=== PATIENT | female | born 1950 | race Caucasian/White ===

== ENCOUNTER → 2016-05-19 | Outpatient (CLI) | payer BC, OTHER ==
[~2016-05-19] VITALS: Ht 139.7 cm; Wt 51.7 kg
[~2016-05-19] MED LIST: ADDERALL 20 MG20 M1 PO; ALLEGRA ALLERG180 MG PO; ANTIBIOTIC; AUGMENTIN 875875 MG PO; BACTRIM DS TAB1 EACH; BENADRYL25 MG IV; BIO IDENTICAL; CLIMARA PRO PA1 EACH TD; DIAZEPAM10 M1 PO; DOLOPHINE HCL10 MG PO; DOXYCYCLINE 10100 MG PO; ENDOCET 7.5-321 EACH PO; FLEXERIL PO; FLONASE 0.05%50 MCG NASAL; LASIX 40 MG TAB40 M1 PO; LEVOTHROID PO; LEVOTHYROXIN0.125 M1 PO; LINZESS290 MCG PO; MEDROLDOSEPACK PO; METHADONE HCL 110 M1 PO; METHADOSE10 M1 PO; METHADOSE10 MG PO; MIRALAX255 GM PO; MOBIC15 MG PO; MOBIC7.5 MG PO; MUCINEX DM ER1 EAC1 PO; NORTRIPTYLINE H50 MG PO; OXYCODON-ACETA1 EAC1 PO; PAXIL40 MG PO; PROBIOTIC1 EAC1 PO; PROMETRIUM PO; PROTONIX 20 MG20 M1 PO; SINGULAIR 10 MG10 M1 PO; STOOL SOFTENER240 MG PO; SYNTHROID100 MCG PO; WELLBUTRIN SR150 MG PO; [UNRECOGNIZED DRUG - OTHER]; [UNRECOGNIZED DRUG - OTHER] PO
--- NOTE | ~2016-05-19 | HPC ---
[facility] [place] [address] PAIN MANAGEMENT CONSULTATION Name: TASNEEM ANGUIANO Room #: REG SETH DelarosaToniKayceeToni#: [id number] Admission: 05/19/16 Attend Phys: Harleen Lucia MD Discharge: Date of : 54 Report #: [id number] THIS REPORT FOR: //name// CC: TAWANNA Lucia PRIMARY CARE PHYSICIAN: Tawanna Abdi M.D. FOLLOWUP COMPLAINT: I have had my hip surgery and I am getting around better. FOLLOWUP HISTORY: The patient is a 65-year-old female who has been seen in the pain clinic for a number of years because of chronic pain associated with degenerative joint disease of her left hip. She returns today after surgery. Things have gone reasonably well. She is walking with the use of a cane. She feels like she is healing reasonably well. She is able to perform the exercises that her physician and physical therapists recommend. She has had no falls. She rates the pain as a 6/10. She feels that the methadone medication 10 mg 1 p.o. t.i.d. have been quite helpful. She strived to decrease her opioid use in the past as she heals up. She has had no problems with the medications and would like to continue it at 10 mg methadone 3 times a day at this juncture to help with her recovery process. PHYSICAL EXAMINATION: GENERAL: The patient is walking reasonably well with the use of a crutch. VITAL SIGNS: Blood pressure 161/95, pulse 110, respiratory rate 18, room air saturations 100%. The patient has a well healing scar in the left lateral thigh. RECOMMENDATIONS: We will continue with the patient on her current medical regimen of 3 methadone tablets per day for a total of 30 mg. She will continue with her convalescence exercises. She will call us if she has any problems with her medications. We would like to thank you for letting us participate in her care. We hope she continues to improve. A script for methadone 10 mg 1 p.o. t.i.d., meloxicam 15 mg 1 p.o. every day and Flexeril 10 mg as needed, has been written. <ELECTRONICALLY SIGNED> By: Harleen Lucia MD 06/13/16 1018 [id number] Harleen Lucia MD /nt
[2016-05-19 08:18] VITALS: BP 161/95
== END ==
LOC: PAIN 07:11
DX: M16.12 Unilateral primary osteoarthritis, left hip (principal)

== ENCOUNTER → 2016-08-04 | Outpatient (CLI) | payer BC, OTHER ==
[~2016-08-04] VITALS: Ht 142.2 cm; Wt 54.7 kg
[~2016-08-04] MED LIST changes: +BACLOFEN 10MG T10 MG PO
--- NOTE | ~2016-08-04 | HPC ---
[facility] [place] [address] PAIN MANAGEMENT CONSULTATION Name: TASNEEM ANGUIANO Room #: REG SETH Sheela#: [id number] Admission: 08/04/16 Attend Phys: Harleen Lucia MD Discharge: Date of : 54 Report #: [id number] THIS REPORT FOR: //name// CC: Adarsh Lucia DATE OF SERVICE: 08/04/2016 FOLLOWUP COMPLAINT: I have had my surgery and things are getting better. I am walking a little better. FOLLOWUP HISTORY: The patient is a 66-year-old female who has been followed in the pain clinic because of chronic degenerative joint disease involving her left hip. She has had an arthroplasty. She feels that things are continuing to improve. She is about 3 months out and feels that her medications continue to be helpful enabling her to engage in activities of daily living that would be hard to endure without use of her current medical regimen. Overall, she is feeling better given her recent surgery. PHYSICAL EXAMINATION: The patient walks with an antalgic gait. She states she sometimes uses a cane or walker at home. Blood pressure 156/95, pulse 107, respiratory rate 16, room air O2 saturation is 98%. Height 4 feet 8 inches, weight 54 kilograms, BMI 27. The patient has pain and discomfort in the left area, which is consistent what one would consider given that she has had hip replacement. RECOMMENDATIONS: We will continue with her current medical regimen. IMPRESSION: 1. History of lumbar radiculopathy, history of recent left hip replacement. 2. Chronic knee pain, history of pseudogout involving her knee. A script for her medications have been written. She will call us if she has any problems with her medications. We would like to thank you for letting us participate in her care. We hope she continues to improve. By: 1604 2044 Harleen Lucia MD /nt
[2016-08-04 09:39] VITALS: BP 156/95
== END ==
LOC: PAIN 08-02 07:15
DX: M54.16 Radiculopathy, lumbar region (principal); M25.569 Pain in unspecified knee; Z96.642 Presence of left artificial hip joint

== ENCOUNTER → 2016-10-27 | Outpatient (CLI) | payer BC, OTHER ==
[~2016-10-27] VITALS: Ht 139.7 cm; Wt 52.6 kg
--- NOTE | ~2016-10-27 | HPC ---
[facility] [place] [address] PAIN MANAGEMENT CONSULTATION Name: TASNEEM ANGUIANO Room #: REG SETH BridgesToni#: [id number] Admission: 10/27/16 Attend Phys: Harleen Lucia MD Discharge: Date of : 54 Report #: [id number] THIS REPORT FOR: //name// CC: Adarsh Lucia DATE OF SERVICE: 10/27/2016 PRIMARY CARE PHYSICIAN: Adarsh Abdi MD FOLLOWUP COMPLAINT: "I fell down when I was down in [place]." FOLLOWUP HISTORY: The patient is a 66-year-old female who has been followed in the pain clinic. As you recall, she has significant problems with arthritis. She has had her hip replaced recently. She felt like things were improving. She and her sister had been procrastinating on a vacation together. They finally went to [place]. She states that while walking on the sand, her foot caught in the sand. She fell. It did not cause any problems with her hip. She does note some increased low back discomfort. She feels that her medications continued to be helpful. PHYSICAL EXAMINATION: GENERAL: The patient is sitting in the chair, leaning to the right side. Complains of pain and discomfort kind of in the left hip area. IMPRESSION: 1. Degenerative joint disease of the left hip, status post hip arthroplasty. The patient has been doing relatively well. 2. Chronic low back pain. 3. History of gastrointestinal problems. 4. Chronic knee pain, had pseudogout involving her knees. RECOMMENDATION: We will continue with the patient's current opioid medications. A script for the next 3 months has been written. The patient will take methadone 1 p.o. t.i.d. She will also continue with her nonsteroidal medications. She will follow up with physical therapy. We discussed the possibility of improving her balance. She has fallen a number of times. I think that physical therapy to increase her balance and mobility would be helpful. Should she fall on her hip and fracture it, she would be in a world of trouble. She feels that this is a good idea as well. A script for this [facility] [address] [place] [address] PAIN MANAGEMENT CONSULTATION Name: TASNEEM ANGUIANO [facility] [id number] Admission: 10/27/16 Attend Phys: Harleen Lucia MD Discharge: Date of : 54 Report #: [id number] evaluation and treatment has been written. We would like to thank you for letting us participate in her care. We hope she continues to improve. By: [id number] 38 Harleen Lucia MD /nt
[2016-10-27 10:58] VITALS: BP 165/98
== END | disposition home or self-care (01) ==
LOC: PAIN 06:46
DX: M16.12 Unilateral primary osteoarthritis, left hip (principal); M54.5 Low back pain; G89.29 Other chronic pain; M25.561 Pain in right knee; M25.562 Pain in left knee; F11.20 Opioid dependence, uncomplicated; Z87.19 Personal history of other diseases of the digestive system; Z96.641 Presence of right artificial hip joint; Z98.890 Other specified postprocedural states

== ENCOUNTER → 2016-12-20 | Outpatient (CLI) | payer BC, OTHER ==
[~2016-12-20] VITALS: Ht 142.2 cm; Wt 52.2 kg
--- NOTE | ~2016-12-20 | HPC ---
[facility] [address] [address] [address] PAIN MANAGEMENT CONSULTATION Name: TASNEEM ANGUIANO Room #: REG SETH Sheela#: [id number] Admission: 12/20/16 Attend Phys: Harleen Lucia MD Discharge: Date of : 54 Report #: [id number] THIS REPORT FOR: //name// CC: Adarsh Lucia DATE OF SERVICE: 12/20/2016 CHIEF COMPLAINT: "I fell, but I am getting better." FOLLOWUP HISTORY: The patient is a 66-year-old female who has been followed in the pain clinic. As you recall, she had a hip replacement. She states that was new. She did not see it. She tripped and fell. Overall, she feels that things are improving. She has some pain and discomfort in her back and feels that her medications continue to be helpful. She would like to continue with her medications. PHYSICAL EXAMINATION: Blood pressure 151/95, second blood pressure 138/87, pulse 93, respiratory rate 14, room air saturation is 96, height 4 feet 8 inches, and weight 115 pounds. The patient walked with a slow and somewhat antalgic gait. IMPRESSION: 1. Degenerative joint disease of the left hip, status post hip arthroplasty-fell a few weeks ago. Notes improvement and finds water therapy helpful. 2. Chronic low back pain. 3. History of gastrointestinal problems. 4. Chronic knee pain, had pseudogout involving her knees. RECOMMENDATION: We will continue with the patient's current medical regimen of methadone 1 p.o. t.i.d. and she will call us if she has any problems with her medications. Mobic and baclofen have been rewritten as well. We would like to thank you for letting us participate in her care. We hope she continues to improve. By: [id number] Harleen Lucia MD /nt
[2016-12-20 09:22] VITALS: BP 151/95
== END ==
LOC: PAIN 07:09
DX: M16.12 Unilateral primary osteoarthritis, left hip (principal); M54.5 Low back pain; G89.29 Other chronic pain; M25.562 Pain in left knee; M25.561 Pain in right knee

== ENCOUNTER → 2017-06-29 | Outpatient (CLI) | payer OTHER ==
[~2017-06-29] VITALS: Ht 149.9 cm; Wt 53.1 kg
[~2017-06-29] MED LIST changes: +AMITRIPTYLINE H10 M1 PO; +AMITRIPTYLINE H25 M2 PO; -BIO IDENTICAL; +DEXTROAMP-AMPHE30 MG PO; +[UNRECOGNIZED DRUG - REMARK]
--- NOTE | ~2017-06-29 | HPC ---
[facility] [place] [address] PAIN MANAGEMENT CONSULTATION Name: TASNEEM ANGUIANO Room #: REG SETH Cyrus.#: [id number] Admission: 06/29/17 Attend Phys: Harleen Lucia MD Discharge: Date of : 54 Report #: [id number] THIS REPORT FOR: //name// CC: Adarsh Lucia DATE OF SERVICE: 06/29/2017 FOLLOWUP COMPLAINT: Here for medication renewal. FOLLOWUP HISTORY: The patient is a 66-year-old female who has been followed in the pain clinic because of chronic pain involves in her low back. She has degenerative joint disease and osteoarthritis involving her hips. She has had arthroplasties and continues to have some pain and discomfort. Has had some pain in her knee as well. Finds that her medications of methadone, Mobic and baclofen continued to be beneficial. These now allow her to engage in activities of daily living. She would have more difficulty doing without. These enable her to stay active. She denies any problems with mentation. She feels that without her medications. She would be much less active and have a worsening of her physical outcome. She has had some increased pain and discomfort. She and her have had some confrontations in the relationship. She has found this quite distressing. ALLERGIES: POLLEN, DAIRY, CORN. CURRENT MEDICATIONS: Diazepam 10 mg p.r.n. as needed, Wellbutrin 150 mg, Paxil 40 mg, docusate 240 mg capsule p.r.n., probiotic, Lactobacillus acidophilus, levothyroxine 0.125 mg, methadone 10 mg p.o. t.i.d., amphetamine 30 mg capsules daily, Mobic 15 mg daily, and baclofen 10 mg t.i.d. PAIN CLINIC ASSESSMENT: 1. History of osteoarthritis, knees involvement and hips; has had hip replacement. 2. Height 4 feet 11. Weight 117 pounds, BMI is 23. 3. VITAL SIGNS: Blood pressure 155/96, pulse 103, respiratory rate 20, room air saturation 98%. Pain intensity 12/14. 4. Fall risk. The patient has not fallen in the last 3 months. She is mindful of her activity. Has fallen in the past. 5. The patient is not on any blood thinner 6. History of hypertension. The patient is not treated for hypertension. 7. Opioid therapy greater than 6 weeks. The patient has signed an opioid contract with the pain clinic. 8. Risk assessment tool indicates 1 on a scale of 10, which indicates low [place] [address] PAIN MANAGEMENT CONSULTATION Name: TASNEEM ANGUIANO Room #: REG [facility]#: [id number] Admission: 06/29/17 Attend Phys: Harleen Lucia MD Discharge: Date of : 54 Report #: [id number] 9. Functional assessment tool rated as 61/70 regarding general activity, mood, walking ability, normal work, relationships with others, sleep, employment or enjoyment of life. 10. Recreational drug use. The patient denies use of recreational drugs. 11. Tobacco use. The patient never used tobacco. 12. Alcohol. The patient denies use of alcoholic beverages. PHYSICAL EXAMINATION: GENERAL: The patient is a white female. She is short in stature at about 4' 11". APPEARANCE: Appears her stated age. ORIENTATION: The patient is alert and oriented x 3. AFFECT: The patient has an appropriate affect. HEENT: Normocephalic and atraumatic. Extraocular eye muscles intact. The patient has normal hearing. Denies any buccal problems and nasal areas are without congestion or complaint. NECK: Without adenopathy. LUNGS: Clear. HEART: Regular rate. ABDOMEN: Protuberant. MUSCULOSKELETAL: The patient has a short physical stature, walks and ambulates with a somewhat side rocking motion. IMPRESSION: 1. Generalized joint disease, status post left hip replacement. 2. Chronic low back pain. 3. Gastroesophageal reflux. 4. Chronic knee pain with pseudogout. 5. Some turbulence in her marriage. She has been given a brochure for [employer] Perla which is helpful when in cases of spousal problems/discord. RECOMMENDATIONS: We discussed treatment options with the patient. We will continue with her current medical regimen. A script for her medications has been renewed. Hopefully, she will continue to improve. Notes that she has noted that the pain has worsened somewhat and that we are experiencing a really cold portion of the ear. She has not had the flu. We would like to thank you for letting us participate in her care. We hope she continues to improve. <ELECTRONICALLY SIGNED> By: Harleen Lucia MD 07/18/17 1434 1430 1749 Harleen Lucia MD /nt
[2017-06-29 09:38] VITALS: BP 155/96
== END ==
LOC: PAIN 06-20 06:43
DX: G89.29 Other chronic pain (principal); M54.5 Low back pain; K21.9 Gastro-esophageal reflux disease without esophagitis; M11.269 Other chondrocalcinosis, unspecified knee; Z96.642 Presence of left artificial hip joint; Z91.018 Allergy to other foods

== ENCOUNTER → 2017-09-12 | Outpatient (CLI) | payer OTHER ==
[~2017-09-12] VITALS: Ht 149.9 cm; Wt 51.3 kg
[~2017-09-12] MED LIST changes: -AMITRIPTYLINE H25 M2 PO
--- NOTE | ~2017-09-12 | HPC ---
[facility] [address] [place] [address] PAIN MANAGEMENT CONSULTATION Name: TASNEEM ANGUIANO Room #: REG SETH Sheela#: [id number] Admission: 09/12/17 Attend Phys: Harleen Lucia MD Discharge: Date of : 54 Report #: [id number] THIS REPORT FOR: //name// CC: TAWANNA Lucia DATE OF SERVICE: 09/12/2017 CHIEF COMPLAINT. I lifted an item out of the car and hurt my ribs. FOLLOWUP HISTORY: The patient is a 66-year-old female who has been followed in the pain clinic for years. As you recall, she suffers from low back pain. She also has significant degenerative joint disease. She has had hip replacements. At this point, she continues to have pain and discomfort, which can be problematic. It has been improved with use of her current medications. She notes that she was lifting an item out of a car recently. She then "pulled a rib out of place." Since that time, she has been using ice, heat and continues to have some pain and discomfort. She states that she has been taking a steroid Dosepak. This has been somewhat helpful. She also has noted some worsening exacerbation of her asthma. The trees are now in wilks and they have been causing her more pain and discomfort from a respiratory vantage point. She feels that her medications are continued to be helpful and enable her to engage in activity. She would not be able to without their use. She states she keeps her medication in a guarded area. She was in tune to the media exchanges regarding opioid medication. She feels that these medications are quite beneficial to her. She is taking them as prescribed. She is concerned that changes may come in the future, which may make her life more uncomfortable as a result of changes in the opioid dispensation. ALLERGIES: POLLEN, DAIRY, CORN. MEDICATIONS: Shweta 180 mg daily, methadone 10/325 mg one p.o. t.i.d., baclofen 10 mg t.i.d., dextroamphetamine/amphetamine 30 mg capsules daily, Synthroid 0.125 mg, lactobacillus, probiotic, bio hormone, stool softener, docusate 240 mg, Paxil 40 mg, Wellbutrin 150 mg, diazepam 10 mg. PAIN CLINIC ASSESSMENT: 1. History of osteoarthritis. The patient has surgeries regarding her hips and knees. She states that she is not being treated for rheumatoid arthritis. 2. Height 4 feet 11 inches, weight 113 pounds, BMI is 22. 3. Vital Signs: Blood pressure 157/96, pulse 100, respiratory rate 20, room air saturation 98%. 4. Pain intensity 12/14. 5. Fall risk. The patient has not fallen in the last 3 months, but does sometimes need some and concentrates [place] [address] PAIN MANAGEMENT CONSULTATION Name: TASNEEM ANGUIANO Room #: REG [facility] Sheela#: [id number] Admission: 09/12/17 Attend Phys: Harleen Lucia MD Discharge: Date of : 54 Report #: [id number] 6. The patient is not on a blood thinner. 7. Hypertension. The patient is not being treated for hypertension. 8. Opioid therapy greater than 6 weeks. The patient has a signed contract and receives her opioid medications only from 1 source of the pain clinic. 9. Risk assessment tool 07/12, which is low risks regarding opioid use. 10. Functional assessment tool indicating not much problems with activities of daily living secondary to the pain. 11. Recreational drug use, never used drugs. 12. Tobacco: The patient never smokes tobacco. 13. Alcohol patient. The patient denies frequent use of alcoholic beverages. PHYSICAL EXAMINATION: GENERAL: The patient is a well-developed white female. She is short in stature is about 4 feet. She is alert and oriented x 3. Her affect appears appropriate. She does seem somewhat concerned today because of pain in her right side after bending and lifting an item out of car with worsening of pain. HEENT: Normocephalic, atraumatic. Extraocular eye muscles intact. Sclerae nonicteric. Hearing is within normal limits without adenopathy. Good range of motion. HEART: Regular rate. ABDOMEN: Nontender. The patient has pain and discomfort in the right chest wall. States that she feels like she is "pulled or muscle/rib. MUSCULOSKELETAL: The patient complains of pain and discomfort in the knees and hips bilaterally. Walks with a somewhat rocking gait. IMPRESSION: 1. Generalized joint disease, status post left hip replacement. 2. Chronic low back pain. 3. Right-sided chest wall pain after bending over in her car to pull out an item. The patient feels that she may have injured her may have injured a rib. 4. Gastroesophageal reflux. 5. Chronic knee pain with pseudogout. 6. Some marital discord, patient has been given a [employer] Perla pamphlet. RECOMMENDATIONS: We discussed treatment options with the patient. At this juncture, we will continue with her current medications. We will add a script for amitriptyline 10 mg at bedtime. The patient states that she is having quite a bit of difficulty in sleeping. Hopefully, this medication would add some pain relief as well as some benefit with sleep. She will take this medication and note its effects. We have alerted her to the possibility of feeling a little bit lightheaded because of the effects of this medication on patient's greater than 60 years of age. She states that she would watch forward and give this medication a try. She will call us if she has any concerns. We would like to [facility] [address] [place] [address] PAIN MANAGEMENT CONSULTATION Name: TASNEEM ANGUIANO Room #: REG SETH Sheela#: [id number] Admission: 09/12/17 Attend Phys: Harleen Lucia MD Discharge: Date of : 54 Report #: [id number] thank you for letting us participate in her care. We hope she continues to improve. <ELECTRONICALLY SIGNED> By: Harleen Lcuia MD 09/14/17 0902 1654 1950 Harleen Lucia MD /MARJAN
[2017-09-12 10:33] VITALS: BP 157/96
== END ==
LOC: PAIN 07:36
DX: K21.9 Gastro-esophageal reflux disease without esophagitis (principal); M54.5 Low back pain; G89.29 Other chronic pain

== ENCOUNTER → 2018-01-25 | Outpatient (CLI) | payer OTHER ==
[~2018-01-25] VITALS: Ht 149.9 cm; Wt 51.8 kg
[~2018-01-25] MED LIST changes: +AMITRIPTYLINE H25 M2 PO
[2018-01-25 09:58] VITALS: BP 125/88
== END ==
LOC: PAIN 07:04
DX: M54.5 Low back pain (principal); G89.29 Other chronic pain; M17.0 Bilateral primary osteoarthritis of knee; M16.0 Bilateral primary osteoarthritis of hip; Z79.899 Other long term (current) drug therapy

== ENCOUNTER → 2018-03-20 | Outpatient (CLI) | payer OTHER ==
[~2018-03-20] VITALS: Ht 149.9 cm; Wt 52.6 kg
[2018-03-20 11:01] VITALS: BP 151/107
== END ==
LOC: PAIN 07:27
DX: M54.5 Low back pain (principal); G89.29 Other chronic pain; M17.0 Bilateral primary osteoarthritis of knee; M16.0 Bilateral primary osteoarthritis of hip; Z79.899 Other long term (current) drug therapy

== ENCOUNTER → 2018-06-07 | Outpatient (CLI) | payer OTHER ==
[~2018-06-07] VITALS: Ht 144.8 cm; Wt 54.4 kg
[~2018-06-07] MED LIST changes: +FLOMAX0.4 MG PO; +LOSARTAN POTASS50 MG PO; +PROGESTERONE100 MG PO; +VALIUM5 MG PO
[2018-06-07 10:01] VITALS: BP 103/76
--- NOTE | 2018-06-07 10:03 | NUR ---
Pain Clinic Assessment: 1. History of Osteoarthritis: KNEES, HIPS History of Rheumatoid Arthritis: ALL OVER 2. Height: 4 ft. 9 in. 144.8 cm. Weight: 120.0 lb. oz. 54.432 kg. Patient's BMI: 26.0 3. Vital Signs: BP: 103/76 Pulse: 105 Resp: 16 Temp: 02 Sat: 97 ECG Mon: 4. Pain Intensity: 8 5. Fall Risk: Dizziness: N Needs help standing or walking: N Fallen in the last 3 months: N Fall risk comments: TRIPPED OVER CARPET-LANDED ON LEFT SIDE 6. Patient on Blood Thinner: None 7. History of Hypertension: N 8. Opioid Therapy greater than 6 weeks: Y Opiate Contract Signed: 12/09/15 9. Risk Assessment Tool Provided: 3- LOW RISK 10. Functional Assessment Tool: 11. Recreational Drug Use: Never Drug Type: Tobacco Use: Never Smoker Tobacco Type: Amount or Packs/day: How Many Years: Alcohol Use: No Frequency: Quant:
--- NOTE | 2018-06-14 16:49 | HPC ---
[facility] [place] [address] PAIN MANAGEMENT CONSULTATION Name: TASNEEM ANGUIANO Room #: REG SETH Sheela#: [id number] Admission: 06/07/18 Attend Phys: Harleen Lucia MD Discharge: Date of : 54 Report #: [id number] THIS REPORT FOR: //name// CC: Adarsh Lucia DATE OF SERVICE: 06/07/2018 CHIEF COMPLAINT: Here for medication renewal. HISTORY: The patient is a 67-year-old female who has been followed for quite a number of years in the pain clinic. She continues to have pain, which has helped with her current medical regimen of opioid medications. States that she is having pain in her lower back, which continues to radiate down into her right leg, right foot big toe and into her second toe. She rates it as an 8/10. As you recall, she has had surgery and hip replacement in 04/2016. Notes that walking, standing, sitting can be problematic. She finds that use of medications are helpful. Oftentimes lies down on a pillow to help with her pain. She recently had a friend who lived in the [place]. This patient had cancer. She was able to respond to her friends request that she see her on her in bed. The patient was happy that she was able to aiden her friends request. Her friend shortly afterwards. Overall, she is doing reasonably well with her current medicine regimen. She has returned today with the hopes of having her medications renewed. ALLERGIES: POLLEN, DAIRY, CORN. MEDICATIONS: Shweta 80 mg daily, methadone 10 mg 1 p.o. t.i.d., baclofen 10 mg t.i.d., dextroamphetamine/amphetamine 30 mg capsules daily, Synthroid 0.125 mg, lactobacillus acidophilus, bile hormone, stool softener, docusate 240 mg, Paxil 40 mg, Wellbutrin 150 mg, diazepam 10 mg. PAIN CLINIC ASSESSMENT/PQRS: 1. History of osteoarthritis. The patient has had arthritic changes in her hips and has had hip replacements as well as has knee pain and arthritic changes. She is not being treated for rheumatoid arthritis. 2. Height 4 feet 11 inches, weight 120 pounds, BMI is 26.2. 3. Vital signs: Blood pressure 103/76, pulse 105, respiratory rate 16, room air saturation 97%. 4. Pain intensity 12/14. 5. Fall risk. The patient tripped over carpet and landed on her left side. 6. Blood thinner. The patient is not on a blood thinning medication. 7. Hypertension. The patient is not being treated for hypertension. 8. Opioid greater than 6 weeks. The patient receives her medications from [facility], the pain clinic. 9. Risk assessment tool, 3/low [place] [address] PAIN MANAGEMENT CONSULTATION Name: TASNEEM ANGUIANO Room #: REG CLAlvaro Coker#: [id number] Admission: 06/07/18 Attend Phys: Harleen Lucia MD Discharge: Date of : 54 Report #: [id number] 10. Functional assessment tool, . 11. Recreational drug use. The patient denies use of recreational drugs. 12. Tobacco: The patient has never smoked. 13. Alcohol: The patient denies use of alcoholic beverages. PHYSICAL EXAMINATION: GENERAL: The patient is a well-developed, well-nourished white female. Short in stature. She is alert and oriented x 3. Her affect is appropriate. Speech is fluent. HEENT: Normocephalic, atraumatic. Extraocular eye muscles intact. Sclerae nonicteric. Mucous membranes are moist. NECK: Without adenopathy or JVD. HEART: Regular rate. S1, S2. ABDOMEN: Nontender. Bowel sounds present. The patient has some pain in the lower portion of her back, pain in her left and right hip. Pain in her knees. She does walk with a rocking [id number]-dx-pqhl motion with an antalgic gait. ASSESSMENT: 1. Generalized joint pain status post left hip replacement. 2. Chronic low back pain. 3. Right-sided chest wall pain, which continues to improve. 4. Gastroesophageal reflux disease. The patient continues to be monitored and continues to monitor her gastrointestinal tract and her use of meloxicam. 5. Chronic knee pain with history of pseudogout. 6. Marital discord. RECOMMENDATIONS: We discussed treatment options with the patient. Risks and benefits of a renewal of her medication was discussed. The patient feels that her medications are helpful. She again is aware that opioid medications can be beneficial, but can be problematic. They can be less effective with prolonged use secondary to the development of dependence. They can cause dependency and addiction. The patient feels that her medications are helpful. She does not feel that she is addicted. Feels that she is able to sleep, think clearly. She is able to engage in activities of daily living, she would not be able to without their use. We would like to thank you for letting us participate in her care. A script for her medications of methadone 10 mg 1 p.o. t.i.d., amitriptyline, baclofen, have all been rewritten. <ELECTRONICALLY SIGNED> By: Harleen Lucia MD 06/14/18 [id number] MD tamy Kiran
== END ==
LOC: PAIN 07:17
DX: M54.5 Low back pain (principal); G89.29 Other chronic pain; R07.89 Other chest pain; M25.561 Pain in right knee; K21.9 Gastro-esophageal reflux disease without esophagitis; Z79.899 Other long term (current) drug therapy; Z63.0 Problems in relationship with spouse or partner; Z96.642 Presence of left artificial hip joint; Z87.39 Personal history of other diseases of the musculoskeletal system and connective tissue

== ENCOUNTER → 2018-08-28 | Outpatient (CLI) | payer OTHER ==
[~2018-08-28] VITALS: Ht 144.8 cm; Wt 57.2 kg
[~2018-08-28] MED LIST changes: +NEURONTIN 300300 M1 PO
[2018-08-28 13:46] VITALS: BP 143/94
--- NOTE | 2018-08-28 14:16 | NUR ---
Pain Clinic Assessment: 1. History of Osteoarthritis: KNEES, HIPS History of Rheumatoid Arthritis: ALL OVER 2. Height: 4 ft. 9 in. 144.8 cm. Weight: 126.0 lb. oz. 57.153 kg. Patient's BMI: 27.3 3. Vital Signs: BP: 143/94 Pulse: 96 Resp: 14 Temp: 02 Sat: 100 ECG Mon: 4. Pain Intensity: 8 5. Fall Risk: Dizziness: N Needs help standing or walking: N Fallen in the last 3 months: N Fall risk comments: TRIPPED OVER CARPET-LANDED ON LEFT SIDE 6. Patient on Blood Thinner: None 7. History of Hypertension: N 8. Opioid Therapy greater than 6 weeks: Y Opiate Contract Signed: 12/09/15 9. Risk Assessment Tool Provided: 3- LOW RISK 10. Functional Assessment Tool: 11. Recreational Drug Use: Never Drug Type: Tobacco Use: Never Smoker Tobacco Type: Amount or Packs/day: How Many Years: Alcohol Use: No Frequency: Quant:
== END ==
LOC: PAIN 13:12
DX: G89.29 Other chronic pain (principal); M54.41 Lumbago with sciatica, right side; Z96.649 Presence of unspecified artificial hip joint

== ENCOUNTER → 2018-09-25 | Outpatient (CLI) | payer OTHER ==
[~2018-09-25] VITALS: Ht 147.3 cm; Wt 54.7 kg
--- NOTE | ~2018-09-25 | HPC ---
[facility] [address] [place] [address] PAIN MANAGEMENT CONSULTATION Name: TASNEEM ANGUIANO Room #: REG SETH Sheela#: [id number] Admission: 09/25/18 ������������������ Attend Phys: Harleen Lucia MD Discharge: ������������������ Date of : 54 Report #: [id number] THIS REPORT FOR: //name// CC: Adarsh Lucia DATE OF SERVICE: 09/25/2018 CHIEF COMPLAINT: Here for medication renewal. HISTORY: The patient is a 68-year-old female who has been followed for a number of years in the pain clinic. She suffers from osteoarthritis of the hips. She has undergone hip replacement. This is on the left side. Also, has back pain. She has been experiencing chronic knee pain. She has been found in the past to have pseudogout. She returns today for renewal of her medication. She has had some GI problems. States that she has been scoped and found a small ulcer. She also has found that she is ALLERGIC TO FISH AND SHELLFISH. She feels that her medications continue to be helpful, has returned for renewal of her medications. ALLERGIES: POLLEN, DAIRY, AND CORN. MEDICATIONS: Shweta 800 mg daily, methadone 10 mg t.i.d., baclofen 10 mg, dextroamphetamine/amphetamine 30 mg capsules, Synthroid 0.125 mg, lactobacillus acidophilus, bile hormone, stool softener, docusate 240 mg, Paxil 40 mg, Wellbutrin 500 mg, and diazepam 10 mg. PAIN CLINIC ASSESSMENT/PQRS: 1. The patient has history of osteoarthritis involving her hips and is having some problems with her knees as well. She has not been treated for rheumatoid arthritis. 2. Height of 4 feet 10 inches, weight 120 pounds, BMI is 25.5. 3. VITAL SIGNS: Blood pressure 128/91, pulse 66, respiratory rate 16, and room air saturation 99%. 4. Pain intensity 6-7/10. 5. Fall history: The patient has not fallen in the last 3 months. 6. Blood thinner. The patient is not on a blood thinning medication. 7. Hypertension. The patient is being treated for hypertension. 8. Opioids greater than 6 weeks. The patient receives her medications from [facility]. 9. Risk assessment tool 3/low risk. 10. Functional assessment tool, . 11. Recreational drug use. The patient denies use of recreational drugs. 12. Tobacco: The patient has never smoked. 13. Alcohol: The patient denies other than rare use of alcoholic beverages. PHYSICAL EXAMINATION: [facility] [address] [place] [address] PAIN MANAGEMENT CONSULTATION Name: TASNEEM ANGUIANO Room #: REG [facility]#: [id number] Admission: 09/25/18 ������������������ Attend Phys: Harleen Lucia MD Discharge: ������������������ Date of : 54 Report #: [id number] GENERAL: The patient is a well-developed white female. Short in stature. She is alert and oriented x 3. Affect is appropriate. Speech is fluent. HEENT: Normocephalic, atraumatic. Extraocular eye muscles intact. Sclerae nonicteric. Mucous membranes are moist. NECK: Without adenopathy or JVD. Upper extremity muscle strength is judged to be 5-/5 for the major muscle groups in the upper extremity. HEART: Regular rate. ABDOMEN: Protuberant. Bowel sounds present. EXTREMITIES: Lower extremity muscle strength is judged to be 4+/5 for the major muscle groups in the lower extremity. The patient has pain and discomfort in her right hip as well as left hip. Also, is experiencing pain in her knees: The patient is a rocking afxv-ya-jvaw motion. Gait appears antalgic. IMPRESSION: 1. Generalized pain status post left hip replacement. 2. Chronic low back pain. 3. Right-sided chest wall pain. 4. Gastroesophageal reflux. The patient has had an endoscopy and was found to have some irritation in her gastrointestinal tract, consistent with peptic ulcer. 5. Chronic knee pain. 6. History of pseudogout. 7. Marital discord. RECOMMENDATIONS: We discussed treatment options with the patient. Risks and benefits of use of opioid medications were again discussed. We explained the risks and benefits of opioids. The patient has been watching the news. She realized that opioid medications can be problematic in some patients. She is aware that 70,000 people last year as a result of opioid use. States that she has taken her medication as prescribed. Medications beneficial and enables her to engage in activity, she would not be able to without their use. Feels overall that things are positive with their use. She has had no complications. She is aware that opioids can cause addiction. She states that she is not feeling addicted and is not exhibiting any addictive behaviors. She is taking the medication as prescribed. She would like to have her medications renewed. A script for her medications of meloxicam 15 mg 1 p.o. daily, gabapentin 300 mg 1 p.o. t.i.d., amitriptyline 25 mg 2 tablets at bedtime and methadone 10 mg 1 p.o. t.i.d. have been renewed. The patient will call us if she has any concerns. We would like to thank you for letting us participate in her care. We hope she continues to improve. ��������������������������������������������� ���������������������������������������� By: ��������������������������������������������� [id number] Harleen Lucia MD /marc
[2018-09-25 12:32] VITALS: BP 128/91
--- NOTE | 2018-09-25 12:35 | NUR ---
Pain Clinic Assessment: 1. History of Osteoarthritis: KNEES, HIPS History of Rheumatoid Arthritis: ALL OVER 2. Height: 4 ft. 10 in. 147.3 cm. Weight: 120.6 lb. oz. 54.704 kg. Patient's BMI: 25.2 3. Vital Signs: BP: 128/91 Pulse: 66 Resp: 16 Temp: 02 Sat: 99 ECG Mon: 4. Pain Intensity: 7 5. Fall Risk: Dizziness: N Needs help standing or walking: N Fallen in the last 3 months: N Fall risk comments: TRIPPED OVER CARPET-LANDED ON LEFT SIDE 6. Patient on Blood Thinner: None 7. History of Hypertension: N 8. Opioid Therapy greater than 6 weeks: Y Opiate Contract Signed: 12/09/15 9. Risk Assessment Tool Provided: 3- LOW RISK 10. Functional Assessment Tool: 11. Recreational Drug Use: Never Drug Type: Tobacco Use: Never Smoker Tobacco Type: Amount or Packs/day: How Many Years: Alcohol Use: No Frequency: Quant:
== END ==
LOC: PAIN 07:06
DX: Z76.0 Encounter for issue of repeat prescription (principal); M54.5 Low back pain; G89.29 Other chronic pain; R07.81 Pleurodynia; K21.9 Gastro-esophageal reflux disease without esophagitis; M11.20 Other chondrocalcinosis, unspecified site; Z96.642 Presence of left artificial hip joint; Z79.891 Long term (current) use of opiate analgesic; Z79.899 Other long term (current) drug therapy; Z63.0 Problems in relationship with spouse or partner

== ENCOUNTER → 2018-10-09 | Outpatient (CLI) | payer OTHER ==
[~2018-10-09] VITALS: Ht 147.3 cm; Wt 58.2 kg
[~2018-10-09] MED LIST changes: +LASIX 40 MG TAB40 M2 PO
[2018-10-09 10:45] VITALS: BP 122/83
--- NOTE | 2018-10-09 10:54 | NUR ---
Pain Clinic Assessment: 1. History of Osteoarthritis: KNEES, HIPS History of Rheumatoid Arthritis: ALL OVER 2. Height: 4 ft. 10 in. 147.3 cm. Weight: 128.4 lb. oz. 58.242 kg. Patient's BMI: 26.8 3. Vital Signs: BP: 122/83 Pulse: 109 Resp: 16 Temp: 02 Sat: 98 ECG Mon: 4. Pain Intensity: 6 5. Fall Risk: Dizziness: N Needs help standing or walking: N Fallen in the last 3 months: N Fall risk comments: TRIPPED OVER CARPET-LANDED ON LEFT SIDE 6. Patient on Blood Thinner: None 7. History of Hypertension: N 8. Opioid Therapy greater than 6 weeks: Y Opiate Contract Signed: 12/09/15 9. Risk Assessment Tool Provided: 3- LOW RISK 10. Functional Assessment Tool: 11. Recreational Drug Use: Never Drug Type: Tobacco Use: Never Smoker Tobacco Type: Amount or Packs/day: How Many Years: Alcohol Use: No Frequency: Quant:
--- NOTE | 2018-10-10 08:03 | HPC ---
[facility] [address] [address] PAIN MANAGEMENT CONSULTATION Name: SILVIOTASNEEM Room #: REG Alvaro Coker#: [id number] Admission: 10/09/18 ������������������ Attend Phys: Virgen Edge Discharge: ������������������ Date of : 54 Report #: [id number] THIS REPORT FOR: //name// CC: Virgen Edge Adarsh Abdi DATE OF SERVICE: 10/09/2018 CHIEF COMPLAINT: Chronic low back pain and left hip pain. HISTORY OF PRESENT ILLNESS: This is a very pleasant 68-year-old female who returns to the pain clinic today for refill of her medications. She suffers from osteoarthritis in her hips. She did recently within the past years underwent a hip replacement and doing better since that has occurred. Her pain today is mostly located in her back, reading at a 6/10, but she does have right lower back pain that has radiated down her right leg to her foot as well. She tells me her pain is an achy, burning, sharp pain, worse with standing and walking. Medications are helpful. She is doing pool therapy exercises and found those also are helpful. She would like to discuss decreasing her pain medicines possibly today. The patient tells me that she did see her GI doctor recently and had a scope done. They told her that she has inflammation on her stomach lining and believe that narcotics made to blame of this. She is also having bloating, so she is wondering if she is able to decrease some of her methadone to see if this helps. The patient does have some constipation that she uses Linzess for management of that. ALLERGIES: POLLEN, IV IODINE, SHELLFISH AND CORN. CURRENT LIST OF MEDICATIONS: Lasix 40 mg daily, Linzess 290 mcg daily, methadone 10 mg 3 times a day, meloxicam 15 mg daily, gabapentin 300 mg 3 times a day, amitriptyline 50 mg at bedtime, losartan 50 mg daily, progesterone 100 mg at bedtime, Flomax 0.4 mg daily, Shweta 180 mg daily, dextroamphetamine 30 mg daily, Synthroid 61 mcg daily, lactobacillus daily, stool softener, Paxil 40 mg daily, bupropion 150 mg daily and Valium as needed. PQRS: 1. The patient has a history of osteoarthritis involving her hips having them replaced and also knee arthritis. She has not been treated for rheumatoid arthritis. 2. Height is 4 feet 10 inches, weight is 128, BMI is 26. 3. Vital Signs: Blood pressure 122/83, pulse is 109, respirations 16, oxygen sat is 98%. 4. Pain score is 6/10. 5. Fall risk, denies dizziness. Does not need help with walking and standing. [address] [address] PAIN MANAGEMENT CONSULTATION Name: TASNEEM ANGUIANO Room #: REG SETH Coker#: [id number] Admission: 10/09/18 ������������������ Attend Phys: Virgen Edge Discharge: ������������������ Date of : 54 Report #: [id number] She did fall in the last 3 months, but did not hurt herself. 6. The patient is not on any blood thinners or medicine for hypertension. 7. Opioid therapy is greater than 6 weeks; therefore, an opioid signed contact is on the chart. Her risk assessment tool is low. Functional assessment is . 8. Recreational drug use, she denies. She is not a smoker and does not drink alcohol. We did check the prescription monitoring system. The patient is filling appropriately for her medications. We will check a drug screen on her in the near future. PHYSICAL EXAMINATION: GENERAL: This is a well-developed, well-nourished, short in stature 68-year-old female. Ronan appears her stated age. She is alert and orientated and her affect is appropriate. HEENT: Normocephalic, atraumatic. Extraocular eye muscles are intact. Mucous membranes are moist. NECK: Without adenopathy or JVD. ABDOMEN: Protruding, but bowel sounds are present. EXTREMITIES: Lower extremities strength judged to be 4/5 for major muscle groups in her lower extremities. She has discomfort in her lumbar spine and tenderness across this area. Pain also radiates from her right hip down the posterior leg to the ankle. Gait is antalgic. IMPRESSION: 1. Generalized pain, status post hip replacement. 2. Complex chronic low back pain. 3. Gastroesophageal reflux and irritation in the gastrointestinal tract. 4. Chronic knee pain. 5. Complex medical management under terms of written opioid agreement. We reviewed the fact that opiate medications are being used to provide analgesia adequate to support activities of daily living, not attempting to achieve a specific pain score on the 0-10 Visual Analog Scale. The current opiate medications are providing sufficient analgesia to allow the patient to participate in activities of daily living. The patient is not exhibiting any aberrant behavior suggestive of drug diversion. The patient is not having any adverse reactions to medications. The patient is not suffering from daytime somnolence or mental acuity changes. The patient is managing opiate-induced constipation with appropriate oiwb-emg-loifhjp agents and dietary considerations. The patient was counseled on concern for caution with operating a motor vehicle while using opiate medications. A physical exam was performed and the patient's functional status was evaluated. All patients with back pain were advised against the bed rest greater than 4 [facility] [address] [place] [address] PAIN MANAGEMENT CONSULTATION Name: TASNEEM ANGUIANO Room #: REG [facility]#: [id number] Admission: 10/09/18 ������������������ Attend Phys: Virgen Edge Discharge: ������������������ Date of : 54 Report #: [id number] days and were advised to return to normal activities. Pain score assessment was noted and the treatment plan was reviewed with the patient. All current medications, both prescribed and OTC were reviewed and reconciled on the electronic medical record. Tobacco screening was accomplished and smoking cessation was advised when indicated. BMI was noted and diet/exercise modification was recommended for all patients following outside normal parameters. I reviewed with the patient today their responsibilities to safeguard prescription medications, reviewed their responsibility to utilize medications only as prescribed by the physician. They are to seek and receive pain medications only from 1 physician group ( [facility]). They are to use 1 pharmacy and keep the clinic informed if they change pharmacies. Their responsibilities include making followup visits in a timely fashion and to avoid abrupt discontinuation of medication usage. Their responsibilities further include bringing their medications (bottles from the pharmacy with residual pills) to the visit for possible confirmation of pill counts and the patient understands it is their responsibility to submit to random drug screens to ensure both that the medications prescribed are present, and that no other controlled substances are present. All prescriptions provided today were generated electronically. PLAN: 1. We discussed treatment options with the patient today. We talked about the fact that she is on meloxicam, which is an anti-inflammatory that also does cause some GI issues. She tells me that the GI doctor did not tell her to decrease this medication. We will try to decrease her meloxicam to 7.5 mg once a day to see if this also helps in decreasing some of her GI distention and inflammation. The patient is agreeable with that. She will start by cutting her 15 mg that she has at home in half. 2. We discussed trying to decrease her methadone dose. The patient is on a fairly high dose greater than 90 morphine milliequivalents per day according to CDC guidelines. The patient has been stable on this dose for quite some time, though she has had her hips replaced, which was the cause of some of her pain as well as her ongoing low back pain. I think it is feasible to try and decrease this slowly to prevent any withdrawal symptoms and also helps the patient to be successful in her decrease of her medicines. Today, we will have her start by taking 10 mg in the morning, 5 at midday and 10 at night. We will continue this for at least 2 months to try and reset her pain receptors and see how she does with her overall pain control. The patient verbalizes understanding. 3. Script was also given for gabapentin 300 mg, #90, with one additional refill and amitriptyline 50 mg at bedtime with one additional refill. [address] [address] PAIN MANAGEMENT CONSULTATION Name: TASNEEM ANGUIANO Room #: REG SETH Coker#: [id number] Admission: 10/09/18 ������������������ Attend Phys: Virgen Edge Discharge: ������������������ Date of : 54 Report #: [id number] Clem Lucia did come and visit with the patient and explained the above plan and collaborated care. ��������������������������������������������� <ELECTRONICALLY SIGNED> ���������������������������������������� By: Virgen Edge ��������������������������������������������� 10/10/18 0803 [id number] Virgen Edge /nt
== END ==
LOC: PAIN 06:52
DX: M54.5 Low back pain (principal); G89.29 Other chronic pain; M25.561 Pain in right knee; K21.9 Gastro-esophageal reflux disease without esophagitis; Z79.891 Long term (current) use of opiate analgesic; Z79.899 Other long term (current) drug therapy; Z96.641 Presence of right artificial hip joint

== ENCOUNTER → 2018-12-13 | Outpatient (CLI) | payer OTHER ==
[~2018-12-13] VITALS: Ht 147.3 cm; Wt 56.5 kg
[2018-12-13 10:24] VITALS: BP 144/92
--- NOTE | 2018-12-13 10:38 | NUR ---
Pain Clinic Assessment: 1. History of Osteoarthritis: KNEES, HIPS History of Rheumatoid Arthritis: ALL OVER 2. Height: 4 ft. 10 in. 147.3 cm. Weight: 124.6 lb. oz. 56.518 kg. Patient's BMI: 26.0 3. Vital Signs: BP: 144/92 Pulse: 104 Resp: 16 Temp: 02 Sat: 100 ECG Mon: 4. Pain Intensity: 5 5. Fall Risk: Dizziness: N Needs help standing or walking: N Fallen in the last 3 months: N Fall risk comments: TRIPPED OVER CARPET-LANDED ON LEFT SIDE 6. Patient on Blood Thinner: None 7. History of Hypertension: N 8. Opioid Therapy greater than 6 weeks: Y Opiate Contract Signed: 12/09/15 9. Risk Assessment Tool Provided: 3- LOW RISK 10. Functional Assessment Tool: 11. Recreational Drug Use: Never Drug Type: Tobacco Use: Never Smoker Tobacco Type: Amount or Packs/day: How Many Years: Alcohol Use: No Frequency: Quant:
--- NOTE | 2018-12-16 13:00 | HPC ---
[facility] [address] [place] [address] PAIN MANAGEMENT CONSULTATION Name: SILVIOTASNEEM Room #: REG [facility] Sheela#: [id number] Admission: 12/13/18 Attend Phys: Virgen Edge Discharge: Date of : 54 Report #: [id number] THIS REPORT FOR: //name// CC: Virgen Edge Adarsh Bellland DATE OF SERVICE: 12/13/2018 CHIEF COMPLAINT: Chronic low back pain and left hip pain. HISTORY OF PRESENT ILLNESS: This is a very pleasant 68-year-old female who returns to the pain clinic today for a refill of her medications that she uses to help treat her low back pain that does radiate into her right leg all the way to her foot to her first and second toes. She does report a pain score of 5/10 today, mostly an achy, sharp, burning pain. This is exacerbated by standing, walking and sitting. She does find the medications very beneficial. She had decreased her methadone by 5 mg over the past 2 months, found that she has been able to tolerate this. She feels possibly having less side effects of constipation with this decrease. The patient tells me that she has been having some daytime sleepiness feeling hungover first thing in the morning. She is attributing this to her Elavil dose that she takes at bedtime. She also thought that she was increasing her weight, though our records indicates that she has recently lost 4 pounds in the last 2 months. She is wondering about a different medication for sleep. ALLERGIES: POLLEN, IV DYE, SHELLFISH AND CORN. CURRENT LIST OF MEDICATIONS: Methadone 10 in the morning, 5 midday, 10 at night, amitriptyline 25 mg at bedtime, gabapentin 300 mg 3 times a day, meloxicam 7.5 mg daily, Lasix 40 mg daily, Linzess daily, losartan, progesterone, Flomax, Shweta, dextroamphetamine, Synthroid, probiotic, bio hormone, stool softener, Paxil, bupropion and diazepam. PQRS: 1. The patient has a history of osteoarthritis involving her hips with recent replacement and knees. She is not being treated for rheumatoid arthritis. 2. Height is 4 feet 10 inches, weight is 124. BMI is 26. 3. VITAL SIGNS: 144/92, pulse is 104, respirations 16, oxygen sat is 100. 4. Pain score is 5/10. 5. Denies dizziness. Does not need help walking or falling. Has not fallen in the last 3 months. 6. The patient is not on any blood thinners, does not take medicine for hypertension. 7. Opioid therapy is greater than 6 weeks; therefore, an opioid signed contract is on the chart. Risk assessment tool is low. Functional assessment is . [address] [address] PAIN MANAGEMENT CONSULTATION Name: TASNEEM ANGUIANO Room #: REG [facility] Sheela#: [id number] Admission: 12/13/18 Attend Phys: Virgen Edge Discharge: Date of : 54 Report #: [id number] 8. Recreational drug use, she denies. She is not a smoker and does not drink alcohol. According to the prescription monitoring system, the patient is filling appropriately. She is due for her medications to be filled today of her methadone. We will check a random drug screen on her in the next visit. PHYSICAL EXAMINATION: GENERAL: This is a well-developed, well-nourished 68-year-old female who appears her stated age, placing her current pain score today at 5/10. HEENT: Normocephalic, atraumatic. Extraocular eye muscles are intact. Mucous membranes are moist. NECK: Without adenopathy or JVD. EXTREMITIES: Discomfort in the lumbar spine that does radiate down her right leg to her right foot. Her gait is antalgic. Her lower extremity strength judged to be 4/5 in all major muscle groups. ASSESSMENT: 1. Generalized pain, status post hip replacement. 2. Complex chronic low back pain. 3. Gastroesophageal reflux and irritation of the gastrointestinal tract. 4. Chronic knee pain. 5. Complex medical management in terms of written opioid agreement. We reviewed the fact that opiate medications are being used to provide analgesia adequate to support activities of daily living, not attempting to achieve a specific pain score on the 0-10 Visual Analog Scale. The current opiate medications are providing sufficient analgesia to allow the patient to participate in activities of daily living. The patient is not exhibiting any aberrant behavior suggestive of drug diversion. The patient is not having any adverse reactions to medications. The patient is not suffering from daytime somnolence or mental acuity changes. The patient is managing opiate-induced constipation with appropriate mbgj-pco-zfdaubf agents and dietary considerations. The patient was counseled on concern for caution with operating a motor vehicle while using opiate medications. A physical exam was performed and the patient's functional status was evaluated. All patients with back pain were advised against the bed rest greater than 4 days and were advised to return to normal activities. Pain score assessment was noted and the treatment plan was reviewed with the patient. All current medications, both prescribed and OTC were reviewed and reconciled on the electronic medical record. Tobacco screening was accomplished and smoking cessation was advised when indicated. BMI was noted and diet/exercise modification was recommended for all patients following outside normal parameters. [address] [address] PAIN MANAGEMENT CONSULTATION Name: TASNEEM ANGUIANO [id number] Admission: 12/13/18 Attend Phys: Virgen Edge Discharge: Date of : 54 Report #: [id number] I reviewed with the patient today their responsibilities to safeguard prescription medications, reviewed their responsibility to utilize medications only as prescribed by the physician. They are to seek and receive pain medications only from 1 physician group ( [facility]). They are to use 1 pharmacy and keep the clinic informed if they change pharmacies. Their responsibilities include making followup visits in a timely fashion and to avoid abrupt discontinuation of medication usage. Their responsibilities further include bringing their medications (bottles from the pharmacy with residual pills) to the visit for possible confirmation of pill counts and the patient understands it is their responsibility to submit to random drug screens to ensure both that the medications prescribed are present, and that no other controlled substances are present. All prescriptions provided today were generated electronically. PLAN: 1. We discussed treatment options with the patient today. The patient feels that her stomach and GI issues have resolved slightly since decreasing her meloxicam to once a day. Some days, she is not needing this as well as also decreasing her methadone. The patient tells me that she has been able to tolerate this decrease, was wondering about decreasing another pill today. I informed the patient that it is not our plan to decrease her that quickly. We will continue at her current dose of 10mg, 5mg, 10mg of methadone for at least two additional months and then talk about decreasing her to 10 mg b.i.d. The patient verbalizes understanding and is happy with this plan. Scripts given today for #75 of methadone for release today and 4 weeks. 2. The patient talked about daytime sleepiness feeling hungover in the morning. She attributed this to her Elavil. The patient does take this and then goes to bed. I encouraged her to take this 25 mg a couple of hours before bedtime and see if that is beneficial. The patient has plenty of refills of that medication since she has been taking 1 and not 2 every night. 3. Scripts also given for meloxicam 7.5 #30 with one additional refill and gabapentin 300 mg t.i.d., #90 with one additional refill. 4. The patient is seen today in collaboration with Dr. Clem Lucia who did see the patient as well. The patient will return in 2 months. <ELECTRONICALLY SIGNED> By: Virgen Edge 12/16/18 1300 1102 Virgen Edge /marc
== END ==
LOC: PAIN 06:49
DX: M54.5 Low back pain (principal); M25.552 Pain in left hip; K21.9 Gastro-esophageal reflux disease without esophagitis; Z79.891 Long term (current) use of opiate analgesic; Z88.8 Allergy status to other drugs, medicaments and biological substances; Z79.899 Other long term (current) drug therapy

== ENCOUNTER → 2019-02-05 | Outpatient (CLI) | payer OTHER ==
[~2019-02-05] VITALS: Ht 147.3 cm; Wt 56.7 kg
[~2019-02-05] MED LIST changes: +AMITRIPTYLINE H25 M3 PO; +MOBIC7.5 M1 PO; +NEURONTIN 300M300 M2 PO
[2019-02-05 13:10] VITALS: BP 148/95
--- NOTE | 2019-02-05 13:11 | NUR ---
Pain Clinic Assessment: 1. History of Osteoarthritis: KNEES, HIPS History of Rheumatoid Arthritis: ALL OVER 2. Height: 4 ft. 10 in. 147.3 cm. Weight: 125.0 lb. oz. 56.700 kg. Patient's BMI: 26.1 3. Vital Signs: BP: 148/95 Pulse: 84 Resp: 14 Temp: 02 Sat: 97 ECG Mon: 4. Pain Intensity: 6 5. Fall Risk: Dizziness: N Needs help standing or walking: N Fallen in the last 3 months: N Fall risk comments: TRIPPED OVER CARPET-LANDED ON LEFT SIDE 6. Patient on Blood Thinner: None 7. History of Hypertension: N 8. Opioid Therapy greater than 6 weeks: Y Opiate Contract Signed: 12/09/15 9. Risk Assessment Tool Provided: 3- LOW RISK 10. Functional Assessment Tool: 11. Recreational Drug Use: Never Drug Type: Tobacco Use: Never Smoker Tobacco Type: Amount or Packs/day: How Many Years: Alcohol Use: No Frequency: Quant:
--- NOTE | 2019-02-06 14:14 | HPC ---
[facility] [address] [place] [address] PAIN MANAGEMENT CONSULTATION Name: TASNEEM ANGUIANO Room #: REG [facility]..#: [id number] Admission: 02/05/19 Attend Phys: Virgen Edge Discharge: Date of : 54 Report #: [id number] THIS REPORT FOR: //name// CC: Virgen Edge Adarsh Abdi DATE OF SERVICE: 02/05/2019 CHIEF COMPLAINT: Chronic low back pain and right leg pain. HISTORY OF PRESENT ILLNESS: This is a very pleasant 68-year-old female who returns to the pain clinic today for refills of her medication that she uses to help treat her ongoing low back pain and lumbar radiculopathy. She reports a pain score of 6/10 today, is mostly an aching, burning, sharp pain that is intensified with walking and standing, but medication are very beneficial in controlling her pain. She reports no problems with constipation or daytime sleepiness. She also reported to the nurse that she is currently off her gabapentin and only takes amitriptyline as needed. Tasneem also reports to me that she thinks she is able to decrease some on her methadone today. She feels that her pain is well controlled and is willing to go down slightly on her medications. ALLERGIES: POLLEN, IV DYE, SHELLFISH AND CORN. CURRENT LIST OF MEDICATIONS: Meloxicam 15 mg daily, methadone 10 mg, 5 mg and 10 mg daily, amitriptyline p.r.n., Lasix 20 mg p.r.n., losartan 50 mg daily, progesterone at bedtime, Flomax 0.4 mg daily, Shweta p.r.n., Mag-Ox, Adderall 30 mg daily, Synthroid ____ mcg daily, probiotic, stool softener, Paxil 40 mg daily, bupropion 150 mg daily, and Valium 5 mg p.r.n. PQRS: 1. The patient has a history of osteoarthritis involving her hips and knees. She is not being treated for rheumatoid arthritis. 2. Height is 4 feet 10 inches, weight is 125. BMI is 26. 3. Vital signs 148/95, pulse is 84, respirations 14, oxygen sat is 97. 4. Pain score 6/10. 5. Denies dizziness, does not need help walking, has not fallen in the last 3 months. 6. The patient is not on any blood thinners. She is on hypertension medicines. 7. Opioid therapy is greater than 6 weeks; therefore, an opioid signed contract is on the chart. Her risk assessment tool is low. Functional assessment is . 8. Recreational drug use, she denies. She is not a smoker and does not drink alcohol. According to the prescription monitoring system, the patient is filling [address] [address] PAIN MANAGEMENT CONSULTATION Name: TASNEEM ANGUIANO Room #: REG CLI Sheela#: [id number] Admission: 02/05/19 Attend Phys: Virgen Edge Discharge: Date of : 54 Report #: [id number] appropriately for her medications and is on time for those to be filled again today. We will collect a random urine drug screen on this patient today. PHYSICAL EXAMINATION: GENERAL: This is a well-developed, well-nourished 68-year-old female who appears her stated age, placing her current pain score at 6/10 today. HEENT: Normocephalic, atraumatic. Extraocular eye muscles are intact. Mucous membranes are moist. NECK: Without adenopathy or JVD. MUSCULOSKELETAL: Gait is antalgic. She has lower extremity strength judged to be 4/5 in all major muscle groups. She has lumbar spine tenderness across the lower back, pain radiates down her right leg into her foot following the L4-L5 and L5-S1 dermatomal distribution. ASSESSMENT: 1. Generalized pain, status post hip replacement. 2. Complex chronic low back pain. 3. Chronic knee pain with osteoarthritis. 4. Complex medical management under terms of written opioid agreement. We reviewed the fact that opiate medications are being used to provide analgesia adequate to support activities of daily living, not attempting to achieve a specific pain score on the 0-10 Visual Analog Scale. The current opiate medications are providing sufficient analgesia to allow the patient to participate in activities of daily living. The patient is not exhibiting any aberrant behavior suggestive of drug diversion. The patient is not having any adverse reactions to medications. The patient is not suffering from daytime somnolence or mental acuity changes. The patient is managing opiate-induced constipation with appropriate tkca-ing-skowjnu agents and dietary considerations. The patient was counseled on concern for caution with operating a motor vehicle while using opiate medications. A physical exam was performed and the patient's functional status was evaluated. All patients with back pain were advised against the bed rest greater than 4 days and were advised to return to normal activities. Pain score assessment was noted and the treatment plan was reviewed with the patient. All current medications, both prescribed and OTC were reviewed and reconciled on the electronic medical record. Tobacco screening was accomplished and smoking cessation was advised when indicated. BMI was noted and diet/exercise modification was recommended for all patients following outside normal parameters. I reviewed with the patient today their responsibilities to safeguard prescription medications, reviewed their responsibility to utilize medications only as prescribed by the physician. They are to seek and receive pain medications only from 1 physician group ( [facility]). They are to use 1 [facility] [address] [place] [address] PAIN MANAGEMENT CONSULTATION Name: SILVIOTASNEEM Room #: REG SETH Coker#: [id number] Admission: 02/05/19 Attend Phys: Virgen ANA M Edge Discharge: Date of : 54 Report #: [id number] pharmacy and keep the clinic informed if they change pharmacies. Their responsibilities include making followup visits in a timely fashion and to avoid abrupt discontinuation of medication usage. Their responsibilities further include bringing their medications (bottles from the pharmacy with residual pills) to the visit for possible confirmation of pill counts and the patient understands it is their responsibility to submit to random drug screens to ensure both that the medications prescribed are present, and that no other controlled substances are present. All prescriptions provided today were generated electronically. PLAN: 1. We discussed treatment options with the patient today. The patient is doing quite well on her current regimen, she is currently not taking gabapentin, but knows in the future, she will need to restart that, especially if she is weaned down off her or lower dose of her methadone. Also, she is currently only taking her amitriptyline at bedtime and still doing quite well with her pain control. We discussed decreasing her medications today at length. 2. It was decided to decrease her methadone to 10 mg twice a day, quantity 60 given for today and 4-week release. The patient may take one in the morning, half midday and a half at night or she may take one in the morning and one at night, whichever treatment regimen she finds most beneficial in controlling her pain. Script given for meloxicam 7.5 #30 with one additional refill as well today. 3. We did collect a urine random drug screen on this patient today. 4. The patient is seen in collaboration today with Dr. Clem Lucia. The patient will return in 2 months. He did see the patient as well today. <ELECTRONICALLY SIGNED> By: Virgen Edge 02/06/19 1414 1351 0430 Virgen Edge /nt
== END ==
LOC: PAIN 07:21
DX: M54.5 Low back pain (principal); M17.0 Bilateral primary osteoarthritis of knee; Z79.891 Long term (current) use of opiate analgesic; Z91.013 Allergy to seafood; Z79.899 Other long term (current) drug therapy; Z96.643 Presence of artificial hip joint, bilateral

== ENCOUNTER → 2019-03-21 | Outpatient (CLI) | payer OTHER ==
[~2019-03-21] VITALS: Ht 147.3 cm; Wt 56.6 kg
[2019-03-21 11:19] VITALS: BP 133/93
--- NOTE | 2019-03-21 11:31 | NUR ---
Pain Clinic Assessment: 1. History of Osteoarthritis: KNEES, HIPS History of Rheumatoid Arthritis: ALL OVER 2. Height: 4 ft. 10 in. 147.3 cm. Weight: 124.8 lb. oz. 56.609 kg. Patient's BMI: 26.1 3. Vital Signs: BP: 133/93 Pulse: 102 Resp: 14 Temp: 02 Sat: 100 ECG Mon: 4. Pain Intensity: 8 5. Fall Risk: Dizziness: N Needs help standing or walking: N Fallen in the last 3 months: N Fall risk comments: TRIPPED OVER CARPET-LANDED ON LEFT SIDE 6. Patient on Blood Thinner: None 7. History of Hypertension: N 8. Opioid Therapy greater than 6 weeks: Y Opiate Contract Signed: 12/09/15 9. Risk Assessment Tool Provided: 3- LOW RISK 10. Functional Assessment Tool: 11. Recreational Drug Use: Never Drug Type: Tobacco Use: Never Smoker Tobacco Type: Amount or Packs/day: How Many Years: Alcohol Use: No Frequency: Quant:
--- NOTE | 2019-03-24 11:57 | HPC ---
[facility] [place] [address] [place] [address] PAIN MANAGEMENT CONSULTATION Name: TASNEEM ANGUIANO Room #: REG [facility] Cyrus.#: [id number] Admission: 03/21/19 Attend Phys: Virgen Edge Discharge: Date of : 54 Report #: [id number] THIS REPORT FOR: //name// CC: Virgen Lucia MD DATE OF SERVICE: 03/21/2019 CHIEF COMPLAINT: Chronic low back pain and right leg pain. HISTORY OF PRESENT ILLNESS: This is a very pleasant 68-year-old female who returns to the Pain Clinic today complaining of pain of 8/10 today. She reports that she got out of her car wrong and twisted her back on Sunday. It has been hurting ever since in her low back and in her right leg to her calf. This is in her normal pain distribution, though she says it is intensified. She reports she has been using ice and otherwise sitting still, doing nothing. She is requesting an increase in her methadone today due to this new discomfort. It is a burning, stabbing, throbbing pain that is worse with standing and walking and sitting. She said cold and traction have been beneficial. She has been out of her muscle relaxants and has not been able to take any of those. ALLERGIES: POLLEN, IV DYE, SHELLFISH AND CORN. CURRENT LIST OF MEDICATIONS: Methadone 10 mg b.i.d., meloxicam 7.5 mg daily, amitriptyline 25 mg at bedtime, Linzess p.r.n., losartan 50 mg daily, progesterone 100 mg daily, Shweta 180 mg daily, dextroamphetamine 30 mg daily, Synthroid 61 mcg daily, probiotic, bio-hormone, stool softener, Paxil 40 mg daily, bupropion 150 mg daily, gabapentin 300 mg daily, baclofen p.r.n. PQRS: 1. She has a history of osteoarthritis involving her hips, knees and spine. She denies any rheumatoid arthritis. 2. Height is 4 feet 10 inches, weight is 124. BMI is 26. 3. Vital signs 133/93, pulse is 102, respirations 14, oxygen sat is 100%. 4. Pain score is 8/10. 5. Denies dizziness, does not need help walking or standing, has not fallen in the last 3 months. 6. The patient is not on any blood thinners. She is on hypertension medicines. 7. Opioid therapy is greater than 6 weeks; therefore, an opiate signed contract is on the chart. Risk assessment tool is low. Functional assessment is 70. 8. Recreational drug use, she denies. She is not a smoker and occasionally drinks alcohol. According to the prescription monitoring system, the [place] [address] PAIN MANAGEMENT CONSULTATION Name: SILVIOTASNEEM Room #: REG CLI Sheela#: [id number] Admission: 03/21/19 Attend Phys: Virgen Edge Discharge: Date of : 54 Report #: [id number] her medications her methadone for another week and a half. She is only filling them from our prescriber. Her morphine milliequivalent is 60 morphine milliequivalents per day. There is a recent drug screen on the chart that is appropriate as well. PHYSICAL EXAMINATION: GENERAL: This is a well-developed, well-nourished 68-year-old female who appears her stated age, placing her current pain score at 8/10 today. HEENT: Normocephalic, atraumatic. Extraocular eye muscles are intact. Mucous membranes are moist. NECK: Without adenopathy or JVD. MUSCULOSKELETAL: She has tightness in her paraspinal muscles of her lumbar spine, worse on the right. She has pain in her lumbar spine that radiates into her right calf following the L4-L5 and L5-S1 dermatomal distribution. Her gait is antalgic. Her lower extremity strength judged to be 5/5 in all major muscle groups. ASSESSMENT: 1. Lumbar radiculopathy following the L4-L5 and L5-S1 dermatomal distribution. 2. Generalized pain, status post hip replacement. 3. Complex chronic low back pain. 4. Chronic knee pain with osteoarthritis. 5. Complex medical management under terms of written opioid agreement. We reviewed the fact that opiate medications are being used to provide analgesia adequate to support activities of daily living, not attempting to achieve a specific pain score on the 0-10 Visual Analog Scale. The current opiate medications are providing sufficient analgesia to allow the patient to participate in activities of daily living. The patient is not exhibiting any aberrant behavior suggestive of drug diversion. The patient is not having any adverse reactions to medications. The patient is not suffering from daytime somnolence or mental acuity changes. The patient is managing opiate-induced constipation with appropriate vfzh-rzh-qquxodj agents and dietary considerations. The patient was counseled on concern for caution with operating a motor vehicle while using opiate medications. PLAN: 1. We discussed treatment options with the patient today. The patient is requesting an increase in her methadone since she tweaked "her back last Sunday." I explained to her that we are not willing to increase her narcotics when we have worked hard to decrease them. This is an acute pain that needs to be dealt with in other measures. I encouraged heat, ice and stretching, not to sit still that makes her body more stiff. I encouraged her to take a hot shower and do exercises in the shower. The patient is having radicular symptoms. We will try a Medrol Dosepak to try and decrease some of inflammation. If this is unsuccessful, she can call for an appointment for an epidural with Dr. Lucia in [address] [address] PAIN MANAGEMENT CONSULTATION Name: TASNEEM ANGUIANO Room #: REG CL[facility] Coker#: [id number] Admission: 03/21/19 Attend Phys: Virgen Edge Discharge: Date of : 54 Report #: [id number] the next 2 weeks. The patient verbalizes understanding of this plan of care. 2. Scripts given today for Medrol Dosepak take as directed; amitriptyline 25 mg at bedtime, #30 with 2 additional refills; meloxicam 7.5 mg, #30 with one additional refill; baclofen 10 mg b.i.d. p.r.n., #60 with one refill; gabapentin 300 mg t.i.d. the patient to take at bedtime first, if that is not beneficial in controlling her pain to increase to 2 and then increase to 3, #90 given with two additional refills. 3. We will continue her on her current methadone dose of 10 mg b.i.d. Scripts given for 60 for release today and 4 weeks. 4. The patient is seen in collaboration with Dr. Clem Lucia who did see the patient as well today. The patient will follow up in 2 months or earlier if an injection is needed. <ELECTRONICALLY SIGNED> By: Virgen Edge 03/24/19 1157 1212 1245 Virgen Edge /nt
== END ==
LOC: PAIN 06:48
DX: M54.17 Radiculopathy, lumbosacral region (principal); M17.0 Bilateral primary osteoarthritis of knee; G89.29 Other chronic pain; Z79.891 Long term (current) use of opiate analgesic; Z96.649 Presence of unspecified artificial hip joint

== ENCOUNTER → 2019-06-04 | Outpatient (CLI) | payer OTHER ==
[~2019-06-04] MED LIST changes: +OXYCODONE-ACET1 EACH PO
[2019-06-04 13:25] VITALS: BP 155/88
--- NOTE | 2019-06-04 13:46 | NUR ---
Pain Clinic Assessment: 1. History of Osteoarthritis: KNEES, HIPS History of Rheumatoid Arthritis: ALL OVER 2. Height: ft. in. cm. Weight: lb. oz. kg. Patient's BMI: 3. Vital Signs: BP: 155/88 Pulse: 107 Resp: 14 Temp: 02 Sat: 98 ECG Mon: 4. Pain Intensity: 10 5. Fall Risk: Dizziness: Y Needs help standing or walking: N Fallen in the last 3 months: N Fall risk comments: TRIPPED OVER CARPET-LANDED ON LEFT SIDE 6. Patient on Blood Thinner: None 7. History of Hypertension: N 8. Opioid Therapy greater than 6 weeks: Y Opiate Contract Signed: 12/09/15 9. Risk Assessment Tool Provided: 3- LOW RISK 10. Functional Assessment Tool: 11. Recreational Drug Use: Never Drug Type: Tobacco Use: Never Smoker Tobacco Type: Amount or Packs/day: How Many Years: Alcohol Use: No Frequency: Quant:
--- NOTE | 2019-06-05 09:06 | HPC ---
[facility] [address] [place] [address] PAIN MANAGEMENT CONSULTATION Name: SILVIOTASNEEM Room #: REG REJIAlvaro Coker#: [id number] Admission: 06/04/19 Attend Phys: Virgen Edge Discharge: Date of : 54 Report #: [id number] THIS REPORT FOR: //name// CC: Virgen Lucia MD DATE OF SERVICE: 06/04/2019 CHIEF COMPLAINT: Chronic low back pain, left patella fracture. HISTORY OF PRESENT ILLNESS: This is a very pleasant 68-year-old female who returns to the pain clinic today due to increased pain. She reports that she recently fell over the weekend, did go to [facility] and was found to have a fractured left patella. She has been back there are several times for further x-rays. Most recently, she did have a CT of her left lower extremity, though she has not seen an orthopedic surgeon. She is reporting a pain score 10/10 today in her left knee. She also has ongoing pain in her low back, right leg that radiates to her foot. She has swelling around her left knee area. She feels it is a burning, throbbing, stabbing pain that is constant. She reports that the methadone alone is not controlling her pain. She does tell me that the Emergency Room did give her some hydrocodone that was ineffective. Her is in the waiting room today. The patient is here in her bathrobe. She has not been able to clean herself. She is stating that she feels that she is not as safe at home since this event happened; her has increasingly been angry with her, and she would like to speak with the [facility] or at least have the opportunity to have a card from them as well. We have discussed this issue with her in the past. ALLERGIES: POLLEN, IV DYE, SHELLFISH AND CORN. CURRENT LIST OF MEDICATIONS: Meloxicam 7.5 daily, gabapentin 300 mg t.i.d., methadone 10 mg b.i.d., baclofen 10 mg b.i.d. p.r.n., amitriptyline 25 mg at bedtime, Linzess, losartan 50 mg daily, progesterone, Flomax, Shweta, dextroamphetamine, levothyroxine, lactose bacillus, bupropion, Paxil and diazepam p.r.n. PQRS: 1. She has a history of osteoarthritis in her hips and knees, and also has rheumatoid arthritis. 2. Height is 4 feet 10 inches. She is not weighed today. 3. Vital signs; blood pressure 155/88, pulse is 107, respirations 14, oxygen sat is 98. 4. Pain score is 10/10. [address] [address] PAIN MANAGEMENT CONSULTATION Name: SILVIOTASNEEM Room #: REG CL M.Kaycee.#: [id number] Admission: 06/04/19 Attend Phys: Virgen Edge Discharge: Date of : 54 Report #: [id number] 5. Complains of dizziness, needs help standing and has fallen. 6. The patient is not on any blood thinners. She does not take medicines for hypertension. 7. Opioid therapy is greater than 6 weeks; therefore, an opioid signed contract is on the chart. Risk assessment tool is low. Functional assessment is . 8. Recreational drug use, she denies. She is not a smoker and does not drink alcohol. According to the prescription monitoring system, the patient is not needing her methadone today; she does have that medication for the next 2 weeks and has been filling appropriately. PHYSICAL EXAMINATION: GENERAL: This is a well-developed, well-nourished, very unkempt 68-year-old female who appears her stated age, placing her current pain score today at 10/10. She is normally very well maintained. HEENT: Normocephalic, atraumatic. Extraocular eye muscles are intact. Mucous membranes are moist. NECK: Without adenopathy or JVD. MUSCULOSKELETAL: She has swelling around her left knee cap, 1+ edema, pain in her left extremity. She has pain in her lumbar spine that radiates into her right leg, following the L4-L5 dermatomal distribution. She is in a wheelchair today and nonambulatory. ASSESSMENT: 1. Recent left nondisplaced longitudinal fracture of the patella with small knee effusion. 2. Lumbar radiculopathy following the L4-L5 dermatomal distribution. 3. Generalized pain, status post hip replacement. 4. Complex chronic low back pain. 5. Chronic knee pain with osteoarthritis. 6. Unsafe environment at home, [facility] card given. The patient refused to call currently. 7. Complex medical management under terms of written opioid agreement. We reviewed the fact that opiate medications are being used to provide analgesia adequate to support activities of daily living, not attempting to achieve a specific pain score on the 0-10 Visual Analog Scale. The current opiate medications are providing sufficient analgesia to allow the patient to participate in activities of daily living. The patient is not exhibiting any aberrant behavior suggestive of drug diversion. The patient is not having any adverse reactions to medications. The patient is not suffering from daytime somnolence or mental acuity changes. The patient is managing opiate-induced constipation with appropriate [id number]-fseklqk agents and dietary considerations. The patient was counseled on concern for caution with operating a motor vehicle while using opiate medications. PLAN: [facility] [address] [place] [address] PAIN MANAGEMENT CONSULTATION Name: SILVIOTASNEEM Room #: REG CLI [facility].#: [id number] Admission: 06/04/19 Attend Phys: Virgen Edge Discharge: Date of : 54 Report #: [id number] 1. We discussed treatment options with the patient today. The patient has not seen orthopedics since her fall, though she has obtained her CT of her left knee. I took the liberty of calling Dr. Wilde's office and scheduled an appointment with him tomorrow at 1:00 for the patient. 2. The patient is instructed to be nonweightbearing and she is to have a knee immobilizer on. The patient tells me her refused it at the hospital. Spouse reports that they have 1 at home, though it is not fitting. I instructed the patient not to move her leg, to keep it immobile until she sees the physician tomorrow, and explained to the that she is not to have any weight on that leg. 3. Our staff gave her a shower since she is very unkempt since she is not able to go up her stairs to her bathroom since her fracture and fall on Sunday. 4. We will give her a short prescription of oxycodone 5/325, #60, to aid in her increased pain due to this fracture. 5. We will write prescriptions for her methadone 10 mg b.i.d. for today and 4-week release, though she is not needing this for another 2 weeks. 6. We will also write prescriptions for her baclofen, meloxicam and gabapentin. These will be sent electronically to her pharmacy. 7. The patient was given [facility]'s card. The patient does not wish to call them currently, but we are worried about her safety at home. The patient has hidden the card in her belongings. The patient was seen in collaboration with Dr. Clem Lucia. <ELECTRONICALLY SIGNED> By: Virgen Edge 06/05/19 [id number] Virgen Edge /marc
== END ==
LOC: PAIN 07:01
DX: S82.022D Displaced longitudinal fracture of left patella, subsequent encounter for closed fracture with routine healing (principal); M54.16 Radiculopathy, lumbar region; G89.29 Other chronic pain; M17.9 Osteoarthritis of knee, unspecified; Z79.891 Long term (current) use of opiate analgesic; Z79.899 Other long term (current) drug therapy; X58.XXXD Exposure to other specified factors, subsequent encounter

== ENCOUNTER → 2019-07-30 | Outpatient (CLI) | payer OTHER ==
[~2019-07-30] VITALS: Ht 147.3 cm; Wt 57.6 kg
[~2019-07-30] MED LIST changes: +MOVANTIK25 MG PO; +VOLTAREN GEL 1100 G1 TOP
[2019-07-30 10:54] VITALS: BP 151/101
--- NOTE | 2019-07-30 10:58 | NUR ---
Pain Clinic Assessment: 1. History of Osteoarthritis: KNEES, HIPS History of Rheumatoid Arthritis: ALL OVER 2. Height: 4 ft. 10 in. 147.3 cm. Weight: 127.0 lb. oz. 57.607 kg. Patient's BMI: 26.6 3. Vital Signs: BP: 151/101 Pulse: 125 Resp: 16 Temp: 02 Sat: 97 ECG Mon: 4. Pain Intensity: 7 5. Fall Risk: Dizziness: N Needs help standing or walking: Y Fallen in the last 3 months: Y Fall risk comments: FELL USING CRUTCHES/FELL TO THE RIGHT SIDE/USING WALKER 6. Patient on Blood Thinner: None 7. History of Hypertension: N 8. Opioid Therapy greater than 6 weeks: Y Opiate Contract Signed: 12/09/15 9. Risk Assessment Tool Provided: 3- LOW RISK 10. Functional Assessment Tool: 11. Recreational Drug Use: Never Drug Type: Tobacco Use: Never Smoker Tobacco Type: Amount or Packs/day: How Many Years: Alcohol Use: No Frequency: Quant:
--- NOTE | 2019-08-01 08:21 | HPC ---
[facility] [place] [address] [address] [place] [address] PAIN MANAGEMENT CONSULTATION Name: TASNEEM ANGUIANO Room #: REG SETH Sheela#: [id number] Admission: 07/30/19 Attend Phys: Harleen Lucia MD Discharge: Date of : 54 Report #: [id number] THIS REPORT FOR: cc: Adarsh Abdi MD, Charles W. MD Brown,Harleen Ha MD ~ CC: Adarsh Lucia DATE OF SERVICE: 07/30/2019 FOLLOWUP COMPLAINT: Fractured knee is healing from having a lot of pain and physical therapy. HISTORY: The patient is a 69-year-old female who has been followed in the pain clinic for quite a number of years. As you may recall, she fell. As a result of the fall, she landed on her left knee. It was found to have been fractured. The patient has undergone surgery for this. She has been undergoing physical therapy. She feels that she is improving, but not to the degree she would like. She has been able to move her knee to about 70 degrees. She has been told by her physical therapist she should be at least at about 90 degrees. Feels that the pain is quite significant and is holding back her progress. She has returned today for renewal of her medications. ALLERGIES: POLLEN, IV DYE, SHELLFISH, CORN. CURRENT MEDICATIONS: Meloxicam 7.5 mg daily, gabapentin 300 mg t.i.d., methadone 10 mg b.i.d., baclofen 10 mg b.i.d., amitriptyline 25 mg at bedtime, Linzess, losartan 50 mg, progesterone, Flomax, Shweta, dextroamphetamine, levothyroxine, lactobacillus, bupropion, Paxil, diazepam. PAIN CLINIC ASSESSMENT/PQRS: 1. History of osteoarthritis, has had knee and hip replacements recently, fracture of the left patella. 2. Height 4 feet 10 inches, weight 127 pounds, BMI 26.6. 3. Vital signs: Blood pressure 151/101, pulse 125/60. Saturation is 97%. 4. Pain intensity 11/13. 5. Fall history: The patient fell while using her crutches to the right while using a walker. 6. Blood thinner. The patient is not on a blood thinning medication. 7. Hypertension. The patient is not being treated for hypertension. 8. Opioids greater than 6 weeks. The [facility]. 9. Risk assessment tool, low for opioid use. 10. Functional [place] [address] PAIN MANAGEMENT CONSULTATION Name: TASNEEM ANGUIANO Room #: REG [facility]#: [id number] Admission: 07/30/19 Attend Phys: Harleen Lucia MD Discharge: Date of : 54 Report #: [id number] 11. Recreational drug use: The patient denies. 12. Tobacco: The patient never smoked. 13. Alcohol. The patient denies frequent use of alcoholic beverages. PHYSICAL EXAMINATION: GENERAL: The patient is a well-developed, well-nourished, somewhat short in stature white female, who appears her stated age. She is alert and oriented x 3. Her affect is appropriate. Speech is fluent. HEENT: Normocephalic, atraumatic. Extraocular eye muscles intact. Sclerae nonicteric. NECK: Without adenopathy or JVD. HEART: Regular. ABDOMEN: Nontender. EXTREMITIES: Upper extremity muscle strength judged to be 5-/5 for the major muscle groups in the upper extremity. The patient has pain in the lower portion of her back with pain involving the left knee. IMPRESSION: 1. Left nondisplaced longitudinal fracture of the patella with small knee effusion. 2. Lumbar radiculopathy following the L4-L5 dermatomal distribution. 3. Generalized pain, status post right hip replacement. 4. Chronic pain in low back. 5. Chronic knee pain with osteoarthritis. 6. Unsafe environment at home, [employer] card given. The patient has the option to call. 7. Complex medical management using opioid medications. RECOMMENDATIONS: We discussed treatment options with the patient. At this juncture, the patient feels that her pain medications are helpful. They are not as successful as she would like. She is still having a significant amount of pain, particularly at the time of physical therapy. She is able to bend her knee to 70 degrees. She would like to continue to increase to at least 90 degrees. The pain stops her effort. She would like to increase her medications somewhat in an effort to increase her pain control. She has used Percocet tablets in the past. She is not using them at this juncture. She has had problems with constipation with Percocet. We will have the patient try Movantik to help with the constipation associated with narcotic use. I think this will be effective. We will also have the patient try Voltaren gel and apply this to the area of her knee. She will take the Percocet medication 1 hour to 1-1/2 hour prior to her physical therapy. She will also place the Voltaren gel 4 times a day and particularly prior to going to physical therapy. She will continue to monitor her GI tract for GI discomfort associated with nonsteroidal anti-inflammatory medications. Hopefully, she will find that this is beneficial and would continue to note improvement. We would like to thank you for letting [facility] [address] [address] PAIN MANAGEMENT CONSULTATION Name: TASNEEM ANGUIANO Room #: REG REJIAlvaro Coker#: [id number] Admission: 07/30/19 Attend Phys: Harleen Lucia MD Discharge: Date of : 54 Report #: [id number] us participate in her care. We hope she continues to improve. A script for her medications have been written. She has been provided a script for Movantik 25 mg 1 p.o. daily, Voltaren gel 100 grams to be applied q.i.d. The patient will also continue with methadone 10 mg 1 p.o. b.i.d. A script for Percocet 5/325 one p.o. b.i.d. have been provided. <ELECTRONICALLY SIGNED> By: Harleen Lucia MD 08/01/19 0821 [id number] [id number] Harleen Lucia MD /nt
== END ==
LOC: PAIN 06:52
DX: S82.092D Other fracture of left patella, subsequent encounter for closed fracture with routine healing (principal); M25.462 Effusion, left knee; M54.16 Radiculopathy, lumbar region; M54.5 Low back pain; M25.569 Pain in unspecified knee; M17.10 Unilateral primary osteoarthritis, unspecified knee; F11.20 Opioid dependence, uncomplicated; Z91.013 Allergy to seafood; Z88.8 Allergy status to other drugs, medicaments and biological substances; Z79.84 Long term (current) use of oral hypoglycemic drugs; Z79.899 Other long term (current) drug therapy

== ENCOUNTER → 2019-09-24 | Outpatient (CLI) | payer OTHER ==
[~2019-09-24] VITALS: Ht 121.9 cm; Wt 56.8 kg
[2019-09-24 10:51] VITALS: BP 145/88
--- NOTE | 2019-09-24 11:02 | NUR ---
Pain Clinic Assessment: 1. History of Osteoarthritis: KNEES, HIPS History of Rheumatoid Arthritis: ALL OVER 2. Height: 4 ft. 10 in. 121.9 cm. Weight: 125.2 lb. oz. 56.790 kg. Patient's BMI: 38.2 3. Vital Signs: BP: 145/88 Pulse: 111 Resp: 20 Temp: 02 Sat: 100 ECG Mon: 4. Pain Intensity: 7 5. Fall Risk: Dizziness: N Needs help standing or walking: N Fallen in the last 3 months: N Fall risk comments: FELL USING CRUTCHES/FELL TO THE RIGHT SIDE/USING WALKER 6. Patient on Blood Thinner: None 7. History of Hypertension: N 8. Opioid Therapy greater than 6 weeks: Y Opiate Contract Signed: 12/09/15 9. Risk Assessment Tool Provided: 3- LOW RISK 10. Functional Assessment Tool: 11. Recreational Drug Use: Never Drug Type: Tobacco Use: Never Smoker Tobacco Type: Amount or Packs/day: How Many Years: Alcohol Use: No Frequency: Quant:
--- NOTE | 2019-09-24 15:41 | HPC ---
[facility] [place] [address] PAIN MANAGEMENT CONSULTATION Name: TASNEEM ANGUIANO Room #: REG SETH Sheela#: [id number] Admission: 09/24/19 Attend Phys: Virgen Edge Discharge: Date of : 54 Report #: [id number] THIS REPORT FOR: cc: Adarsh Abdi MD, Charles W. MD Hocker, Amanda CNS ~ CC: Chiquis Lucia MD DATE OF SERVICE: 09/24/2019 CHIEF COMPLAINT: Chronic low back pain, left patella fracture. HISTORY OF PRESENT ILLNESS: This is a very pleasant 69-year-old female, as you know, has recently fractured her left patella. She underwent surgery. She is continuing physical therapy at home during this time. She is able to move her left knee in 90 degrees. She states that her pain is slowly diminishing in this knee. She does continue to have some low back pain. She feels that that has been aggravated since her physical therapy. Her pain today is a 7/10 per her report. It is a stabbing, numbness, burning, throbbing pain that is worse with standing and walking. She feels that the medication that she takes has been beneficial in reducing her pain, though she has been having some stomach issues as well as she believes weight gain as a result of her amitriptyline. The patient reports that she feels amitriptyline has made her gain weight though looking in her chart to the past year, her weight has remained fairly stable. The patient also reports that she has been having some stomach discomfort. She was nauseated from taking her oxycodone and has stopped that medication, but she continues to have some ongoing stomach issues. She does see a GI doctor for problems in the past and has not seen this physician recently. Today, she is requesting refills of multiple medications. ALLERGIES: POLLEN, IV DYE, SHELLFISH. CURRENT LIST OF MEDICATIONS: Diclofenac gel, Movantik, oxycodone, methadone 10 mg b.i.d., meloxicam 7.5 mg daily, gabapentin 300 mg t.i.d., baclofen 10 mg b.i.d. p.r.n., amitriptyline 25 mg at bedtime, Linzess, losartan, progesterone, Flomax, Shweta, dexamphetamine, Synthroid, probiotic, stool softener, Paxil, Wellbutrin, and diazepam. PQRS: 1. She has history of arthritic changes in her knees and hips that have had hip replacement. States she has rheumatoid arthritis as well. 2. Height is 4 feet 10 inches, weight is 125. BMI is 38. 3. Vital signs 145/88, pulse is 111, respirations 20, oxygen sat is 100. 4. Pain score is 7/10. 5. Fall risk. Denies dizziness. Does not need help walking or standing. Has [address] [address] PAIN MANAGEMENT CONSULTATION Name: TASNEEM ANGUIANO Room #: REG CL Sheela#: [id number] Admission: 09/24/19 Attend Phys: Virgen Edge Discharge: Date of : 54 Report #: [id number] not fallen in the last 3 months. 6. The patient is not on any blood thinners and is not being treated for hypertension. 7. Opioid therapy is greater than 6 weeks; therefore, an opioid signed contract is on the chart. Risk assessment tool is low. Functional assessment is 06/13. 8. Recreational drug use, she denies. She is not a smoker and does not drink alcohol. According to the prescription monitoring system, the patient is due to fill her methadone today filling in a timely fashion. According to the CDC guidelines, her morphine mEq per day is 50 MME. PHYSICAL EXAMINATION: GENERAL: This is a well-developed and well-nourished 69-year-old female who appears her stated age. She is alert and orientated, answering all my questions appropriately. Her speech is fluent, rating her pain score at 7/10. HEENT: Normocephalic, atraumatic. Extraocular eye muscles are intact. Sclerae are nonintrinsic. She is wearing a mask. NECK: Without adenopathy or JVD. MUSCULOSKELETAL: The patient has pain in her lower portion of her back that radiates into her legs. She has pain in her left knee with range of motion greater than 90 degrees in that knee. She also has pain that radiates from her lower back down her right leg. The patient's lower extremity strength judged to be 5/5 in all major muscle groups. IMPRESSION: 1. Left nondisplaced longitudinal fracture of the patella with recent surgery. 2. Lumbar radiculopathy following the L4-L5 dermatomal distribution. 3. Hip pain, status post right hip replacement. 4. Chronic low back pain. 5. Chronic knee pain with osteoarthritis. 6. Complex medical management under terms of written opioid agreement. We reviewed the fact that opiate medications are being used to provide analgesia adequate to support activities of daily living, not attempting to achieve a specific pain score on the 0-10 Visual Analog Scale. The current opiate medications are providing sufficient analgesia to allow the patient to participate in activities of daily living. The patient is not exhibiting any aberrant behavior suggestive of drug diversion. The patient is not having any adverse reactions to medications. The patient is not suffering from daytime somnolence or mental acuity changes. The patient is managing opiate-induced constipation with appropriate [id number] agents and dietary considerations. The patient was counseled on concern for caution with operating a motor vehicle while using opiate medications. PLAN: [facility] [address] [place] [address] PAIN MANAGEMENT CONSULTATION Name: TASNEEM ANGUIANO Room #: REG [facility] M.Kaycee.#: [id number] Admission: 09/24/19 Attend Phys: Virgen Edge Discharge: Date of : 54 Report #: [id number] 1. We discussed treatment options with the patient today. The patient is reporting that [place] is making her gain weight. A perusal of the chart from the previous year states that she has increased her weight by 5 pounds. I informed her it could be due to lack of exercise and activity, especially since she broke her patella and has been recuperating plus during the COVID virus, people have not been as active. The patient still believes it is from her amitriptyline. I have encouraged her to decrease this to one every other day for a week, then off. She may take melatonin to see if that it is beneficial in aiding her sleep. 2. The patient continues to have ongoing stomach discomfort. The patient does have a longstanding history of stomach issues. I encouraged her to call her GI doctor, but in the meantime, to stop her oral nonsteroidal anti-inflammatory and meloxicam. She does take this for her osteoarthritis. She is leery to stop this medication. I encouraged her to use her diclofenac gel up to 4 times a day while she has stopped her meloxicam to see if this aids in decreasing some of her stomach pain. The patient verbalized understanding. 3. The patient found the oxycodone was causing some nausea. She had not been on any breakthrough pain medicine prior to her fractured patella. We will discontinue this. We will just continue her methadone twice a day for her pain. She has been getting by without any breakthrough pain medicine. 4. We will send electronically her baclofen, meloxicam, morphine, methadone, Voltaren gel and Movantik which she has been finding beneficial for her opioid-induced constipation, to her pharmacy. These will be sent electronically by Dr. Clem Lucia. The patient was seen in collaboration with him today and he did see the patient as well. The patient will return in 2 months. <ELECTRONICALLY SIGNED> By: Virgen Edge 09/24/19 1541 [id number] Virgen Edge /marc
== END ==
LOC: PAIN 07:02
DX: M54.16 Radiculopathy, lumbar region (principal); G89.29 Other chronic pain; S82.025D Nondisplaced longitudinal fracture of left patella, subsequent encounter for closed fracture with routine healing; M17.0 Bilateral primary osteoarthritis of knee; Z96.641 Presence of right artificial hip joint; Z79.891 Long term (current) use of opiate analgesic; X58.XXXD Exposure to other specified factors, subsequent encounter

== ENCOUNTER → 2019-10-29 | Outpatient (CLI) | payer OTHER ==
[~2019-10-29] VITALS: Ht 147.3 cm; Wt 54.1 kg
[~2019-10-29] MED LIST changes: +PREDNISONE 5 MG5 M1 PO; +VOLTAREN GEL 1100 G2 TOP
[2019-10-29 12:45] VITALS: BP 149/95
--- NOTE | 2019-10-29 13:05 | NUR ---
Pain Clinic Assessment: 1. History of Osteoarthritis: KNEES, HIPS History of Rheumatoid Arthritis: ALL OVER 2. Height: 4 ft. 10 in. 147.3 cm. Weight: 119.2 lb. oz. 54.069 kg. Patient's BMI: 24.9 3. Vital Signs: BP: 149/95 Pulse: 109 Resp: 16 Temp: 02 Sat: 99 ECG Mon: 4. Pain Intensity: 7 5. Fall Risk: Dizziness: N Needs help standing or walking: N Fallen in the last 3 months: N Fall risk comments: FELL USING CRUTCHES/FELL TO THE RIGHT SIDE/USING WALKER 6. Patient on Blood Thinner: None 7. History of Hypertension: N 8. Opioid Therapy greater than 6 weeks: Y Opiate Contract Signed: 12/09/15 9. Risk Assessment Tool Provided: 2 LOW RISK 10. Functional Assessment Tool: /70 11. Recreational Drug Use: Never Drug Type: Tobacco Use: Never Smoker Tobacco Type: Amount or Packs/day: How Many Years: Alcohol Use: No Frequency: Quant:
--- NOTE | 2019-10-30 15:43 | HPC ---
[facility] [place] [address] PAIN MANAGEMENT CONSULTATION Name: TASNEEM ANGUIANO Room #: REG SETH Sheela#: [id number] Admission: 10/29/19 Attend Phys: Virgen Edge Discharge: Date of : 54 Report #: [id number] THIS REPORT FOR: cc: Adarsh Abdi MD, Charles W. MD Hocker, Amanda CNS ~ CC: Chiquis Lucia MD DATE OF SERVICE: 10/29/2019 CHIEF COMPLAINT: Chronic low back pain. HISTORY OF PRESENT ILLNESS: This is a pleasant 69-year-old female who is well known to the pain clinic who is here for her opioid medications. She has reported to us today that she has been slowly weaning down her methadone, currently taking 10 mg total in a day. Her pain score is 7/10 today, but feels like she is finally feeling better in her low back and her left knee, which was fractured, her patella was fractured earlier this year. She just finished physical therapy on her knee and has now started physical therapy for pelvic floor issue. She states she had been seen a DALJIT Aranda who did start her on Movantik and has had her start physical therapy. She feels that her pain has improved as well. Today, she complains of a burning, numbness, throbbing pain that is worse with prolonged standing and walking, better with lying down, medications, and repositioning. The Movantik has helped with her constipation that she feels she has from her opioids as well. Today, she is requesting refills of her methadone. ALLERGIES: POLLEN, IV DYE, SHELLFISH AND CORN. CURRENT LIST OF MEDICATIONS: Prednisone 5 mg daily, Movantik 25 mg, methadone 5 mg b.i.d., meloxicam, diclofenac gel, baclofen, gabapentin, amitriptyline, Linzess, losartan, progesterone, Flomax, Shweta, Synthroid, probiotic, stool softener, Paxil, Wellbutrin, and diazepam. PQRS: 1. She has osteoarthritis in her knees and hips as well as rheumatoid arthritis. 2. Height is 4 feet 10 inches, weight is 119, BMI is 24. 3. Vital signs; blood pressure 149/95, pulse is 109, respirations 16, oxygen sat is 99%. 4. Pain score is 7/10. 5. Denies dizziness, does not need help walking and has not fallen in the last 3 months. 6. The patient is not on any blood thinners or medicine for hypertension. Opioid therapy is greater than 6 weeks; therefore, an opioid signed contract is on the chart. Risk assessment tool is low. Functional assessment is recreational drug use, she denies. She is not a smoker [place] [address] PAIN MANAGEMENT CONSULTATION Name: TASNEEM ANGUIANO Room #: REG SETH Coker#: [id number] Admission: 10/29/19 Attend Phys: Virgen Edge Discharge: Date of : 54 Report #: [id number] alcohol. According to the prescription monitoring system, she last filled on September 23. She is due to fill her medications today. There is a prescription at the pharmacy for methadone 60 tablets that we verified with the pharmacist. According to the CDC guidelines, her morphine mEq is 30 MME per day. PHYSICAL EXAMINATION: GENERAL: This is a well-developed, well-nourished, well-hydrated 69-year-old female who appears her stated age, placing her current pain score at 7/10. Her speech is fluent. HEENT: Normocephalic and atraumatic. Extraocular eye muscles are intact. Sclerae are non-intrinsic. She has a mask on. NECK: Without adenopathy or JVD. MUSCULOSKELETAL: She has pain in the lumbosacral region of her back that does radiate into her bilateral legs. Does complain of left knee pain. No swelling, no edema noted. The patient's lower extremity strength judged to be 5/5 in all major muscle groups. IMPRESSION: 1. Recently healed patellar fracture. 2. Lumbar radiculopathy following the L4-L5 dermatomal distribution. 3. Hip pain, status post left hip replacement. 4. Chronic low back pain. 5. Osteoarthritis and rheumatoid arthritis. 6. Complex medical management under terms of written opioid agreement. 7. Opioid-induced constipation. We reviewed the fact that opiate medications are being used to provide analgesia adequate to support activities of daily living, not attempting to achieve a specific pain score on the 0-10 Visual Analog Scale. The current opiate medications are providing sufficient analgesia to allow the patient to participate in activities of daily living. The patient is not exhibiting any aberrant behavior suggestive of drug diversion. The patient is not having any adverse reactions to medications. The patient is not suffering from daytime somnolence or mental acuity changes. The patient is managing opiate-induced constipation with appropriate khwp-wpk-elybvli agents and dietary considerations. The patient was counseled on concern for caution with operating a motor vehicle while using opiate medications. A physical exam was performed and the patient's functional status was evaluated. All patients with back pain were advised against the bed rest greater than 4 days and were advised to return to normal activities. Pain score assessment was noted and the treatment plan was reviewed with the patient. All current medications, both prescribed and OTC were reviewed and reconciled on the electronic medical record. Tobacco screening was accomplished and smoking cessation was advised when indicated. BMI was noted and diet/exercise modification was recommended for all patients following outside normal [facility] [address] [place] [address] PAIN MANAGEMENT CONSULTATION Name: TASNEEM ANGUIANO Room #: REG SETH Cyrus.#: [id number] Admission: 10/29/19 Attend Phys: Virgen Edge Discharge: Date of : 54 Report #: [id number] parameters. I reviewed with the patient today their responsibilities to safeguard prescription medications, reviewed their responsibility to utilize medications only as prescribed by the physician. They are to seek and receive pain medications only from 1 physician group ( [facility]). They are to use 1 pharmacy and keep the clinic informed if they change pharmacies. Their responsibilities include making followup visits in a timely fashion and to avoid abrupt discontinuation of medication usage. Their responsibilities further include bringing their medications (bottles from the pharmacy with residual pills) to the visit for possible confirmation of pill counts and the patient understands it is their responsibility to submit to random drug screens to ensure both that the medications prescribed are present, and that no other controlled substances are present. All prescriptions provided today were generated electronically. PLAN: 1. We discussed treatment options with the patient today. The patient has been able to decrease her methadone from two tablets a day to now one 10 mg tablets dividing the dose in half. We encouraged the patient to continue at this dose, she felt like she could decrease further, but was having difficulty. I explained that her body needs transition and readjust to this current medicine. We will continue her on 5 mg b.i.d. for 1 month, then instructing the patient to decrease to 5 mg in the morning with no tablets at night and to trial this for the next month. If she does have issues, we can dispense 5 mg tablet and give her 2.5 mg b.i.d. Our goal is to slowly wean off this medication. Scripts are at the pharmacy, so no prescriptions given today of this medicine. 2. The patient is complaining of weight gain with the amitriptyline. I did perusal the chart in 2018 two years ago from now, she weighed 6 pounds less than she does now. I encouraged the patient to be more physically active as she is able in the last 2 months, she has decreased 6 pounds, but we will decrease her amitriptyline from 25 to 10 mg to see if this is also beneficial. The patient is not having any issues with sleep and this medication is low enough it should not affect any depression issues. 3. We will resend her Voltaren gel, which she finds beneficial on her multiple joints of osteoarthritis. 4. The patient is seen in collaboration with Dr. Clem Lucia. The patient will return in 2 months as needed for medications. <ELECTRONICALLY SIGNED> By: Virgen Edge 10/30/19 [id number] [id number] [id number] Virgen Edge /nt
== END ==
LOC: PAIN 06:46
PROVIDERS: ATTEND Clinical Nurse Specialist Adult Health
DX: M54.16 Radiculopathy, lumbar region (principal); M06.9 Rheumatoid arthritis, unspecified; F11.20 Opioid dependence, uncomplicated; K59.00 Constipation, unspecified; Z87.81 Personal history of (healed) traumatic fracture; Z96.641 Presence of right artificial hip joint; Z88.8 Allergy status to other drugs, medicaments and biological substances; Z79.899 Other long term (current) drug therapy

== ENCOUNTER → 2019-11-26 | Outpatient (CLI) | payer OTHER ==
[~2019-11-26] VITALS: Ht 147.3 cm; Wt 53.7 kg
[2019-11-26 12:39] VITALS: BP 136/75
--- NOTE | 2019-11-26 12:48 | NUR ---
Pain Clinic Assessment: 1. History of Osteoarthritis: KNEES, HIPS History of Rheumatoid Arthritis: ALL OVER 2. Height: 4 ft. 10 in. 147.3 cm. Weight: 118.4 lb. oz. 53.706 kg. Patient's BMI: 24.8 3. Vital Signs: BP: 136/75 Pulse: 113 Resp: 14 Temp: 02 Sat: 99 ECG Mon: 4. Pain Intensity: 7 5. Fall Risk: Dizziness: N Needs help standing or walking: N Fallen in the last 3 months: N Fall risk comments: FELL USING CRUTCHES/FELL TO THE RIGHT SIDE/USING WALKER 6. Patient on Blood Thinner: None 7. History of Hypertension: N 8. Opioid Therapy greater than 6 weeks: Y Opiate Contract Signed: 12/09/15 9. Risk Assessment Tool Provided: 2 LOW RISK 10. Functional Assessment Tool: /70 11. Recreational Drug Use: Never Drug Type: Tobacco Use: Never Smoker Tobacco Type: Amount or Packs/day: How Many Years: Alcohol Use: No Frequency: Quant:
--- NOTE | 2019-12-09 14:10 | HPC ---
[facility] [place] [address] [place] [address] PAIN MANAGEMENT CONSULTATION Name: TASNEEM ANGUIANO Room #: REG SETH BridgesToni#: [id number] Admission: 11/26/19 Attend Phys: Harleen Lucia MD Discharge: Date of : 54 Report #: [id number] THIS REPORT FOR: cc: Adarsh Abdi MD, Charles W. MD Brown,Harleen Ha MD ~ CC: Adarsh Lucia DATE OF SERVICE: 11/26/2019 CHIEF COMPLAINT: Here for medicine renewal and I am still having some low back pain down the right buttocks and calves. I have some left knee pain. HISTORY: The patient is a 69-year-old female who has been followed in the Pain Clinic because of chronic pain in her low back. She has been using opioid medications to help. She is now post-surgical status post surgery. She is improving in her daily activities. She is slowly decreasing her use of opioids and is taking 10 mg of methadone daily. She scores her pain as a 7/10. Pain is worse when she is standing, walking, sitting and sometimes lying down. She finds that use of her medications, with cold, with rest and repositioning can be helpful. She has pain in her lower back and down into the right buttocks involving her calf. She has some left knee pain. She has returned today for renewal of her medications. ALLERGIES: POLLEN, IV DYE, SHELLFISH, CORN. CURRENT MEDICATIONS: Prednisone 5 mg daily, Movantik 25 mg, methadone 5 mg b.i.d., meloxicam, diclofenac gel, baclofen, gabapentin, amitriptyline, Linzess, losartan, progesterone, Flomax, Shweta, Synthroid, probiotic, stool softener, Paxil, Wellbutrin, and diazepam. PAIN CLINIC ASSESSMENT/PQRS: 1. The patient has some osteoarthritic changes in her knees and hips as well as rheumatoid arthritis. 2. Height 4 feet 10 inches, weight 118 pounds, BMI is 24.8. 3. Vital Signs: Blood pressure 136/75, pulse 113, respiratory rate 14, room air saturation 99%. 4. Pain intensity, 11/13. 5. Fall history: The patient fell using her crutches. 6. Blood thinner. The patient is not on a blood thinning medication. 7. Hypertension. The patient is not being treated for hypertension. 8. Opioids greater than 6 weeks. The patient receives medication from the Pain Clinic. 9. Risk assessment tool, low for opioid use. [address] [address] PAIN MANAGEMENT CONSULTATION Name: TASNEEM ANGUIANO Room #: REG CLI [facility]#: [id number] Admission: 11/26/19 Attend Phys: Harleen Lucia MD Discharge: Date of : 54 Report #: [id number] 10. Functional assessment tool reviewed. 11. Recreational drug use. The patient denies. 12. Tobacco: The patient has never smoked. 13. Alcohol. The patient denies use of alcoholic beverages. PHYSICAL EXAMINATION: GENERAL: The patient is a well-developed, well-nourished white female, somewhat short in stature. She is wearing a mask. HEENT: Normocephalic, atraumatic. Extraocular eye muscles intact. Sclerae nonicteric. NECK: Without adenopathy or JVD. LUNGS: Generally clear. ABDOMEN: Nontender. MUSCULOSKELETAL: Pain in the lumbar area with pain that radiates down into her legs bilaterally. Has left knee pain. Lower extremity muscle strength is judged to be 5-/5 for the major muscle groups in the lower extremity. IMPRESSION: 1. Recently healed patellar fracture. 2. Lumbar radicular pain following the L4-L5 dermatomal distribution. 3. Hip pain, status post left hip replacement. 4. Chronic low back pain. 5. Osteoarthritis. 6. Rheumatoid arthritis. 7. Complex medical management used to help control her pain. 8. Opioid-induced constipation. RECOMMENDATIONS: We discussed treatment options with the patient. At this juncture, we will continue with her medications of opioids to help control pain. A script for her medications have been rewritten. She will continue with Elavil increased from 10 mg at bedtime to 20 mg at bedtime. She will continue with Voltaren gel 4 times daily to the affected area. The patient will continue with Movantik for constipation associated with opioids. She will continue with methadone 5 mg b.i.d. She will also continue with gabapentin 300 mg t.i.d. The patient will use baclofen 10 mg b.i.d. for muscle spasms. She will continue to monitor her GI tract and use meloxicam 15 mg or 7 mg 1 p.o. daily. We would like to thank you for letting us participate in her care. We hope she continues to improve. <ELECTRONICALLY SIGNED> By: Harleen Lucia MD 12/09/19 1410 [id number] Harleen Lucia MD /nt
== END ==
LOC: PAIN 07:05
PROVIDERS: ATTEND Anesthesiology Pain Medicine
DX: M06.89 Other specified rheumatoid arthritis, multiple sites (principal); M19.90 Unspecified osteoarthritis, unspecified site; M54.16 Radiculopathy, lumbar region; G89.29 Other chronic pain; Z79.891 Long term (current) use of opiate analgesic; Z79.899 Other long term (current) drug therapy; Z91.041 Radiographic dye allergy status

== ENCOUNTER → 2020-01-23 | Outpatient (CLI) | payer OTHER ==
[~2020-01-23] VITALS: Ht 147.3 cm; Wt 50.8 kg
[~2020-01-23] MED LIST changes: +NASACORT10.8 ML NASAL
--- NOTE | ~2020-01-23 | HPC ---
[facility] [address] [address] [place] [address] PAIN MANAGEMENT CONSULTATION Name: TASNEEM ANGUIANO Room #: REG SETH Sheela#: [id number] Admission: 01/23/20 Attend Phys: Virgen Edge Discharge: Date of : 54 Report #: [id number] THIS REPORT FOR: cc: Adarsh Abdi MD,Adarsh Edge,Virgen VIRAMONTES ~ CC: Virgen Abdi DATE OF SERVICE: 01/23/2020 CHIEF COMPLAINT: Low back pain, knee pain. HISTORY OF PRESENT ILLNESS: This is a 69-year-old female who returns to the pain clinic today for refill of her opioid medications. She reports that she is doing quite well on her current regimen despite rating her pain today a 7/10. She believes that her pain is well controlled in her lower back, bilateral legs. She is complaining of some increased pain in her left shoulder today and is going to see an orthopedic doctor soon per her report. She characterizes her pain as a sharp stabbing pain, worse with any walking activity, sitting and even lying down, with the medications as well as repositioning herself and using cold are beneficial. She denies problems with constipation. She in fact states that her constipation has decreased since she has decreased her opioid medications. She is only requiring Linzess and Movantik on an as-needed basis. The patient reports today that she is getting ready to go on vacation for 10 days to [facility], she may need a vacation fill, but it looks like she is due to fill her medications today. ALLERGIES: IV DYE, SHELLFISH. CURRENT LIST OF MEDICATIONS: Methadone 10 mg b.i.d., amitriptyline 10 mg 2 at bedtime, meloxicam, gabapentin, diclofenac gel, baclofen, prednisone, Movantik, Linzess, losartan, progesterone, Flomax, Shweta, dexamphetamine, Synthroid, probiotic, biohomin, stool softener, Paxil, bupropion, and diazepam. PATIENT'S PQRS: 1. She has a history of osteoarthritis in her knees, hips as well as being treated for rheumatoid arthritis. 2. Height is 4 feet 10 inches, weight is 112, BMI is 23. 3. Vital signs 128/84, pulse is 115, respirations 14, oxygen sat is 100. 4. Pain score is 7/10. 5. Denies dizziness, does not need help walking or standing, has not fallen in the last 3 months. 6. The patient is not on any blood thinners. She does not have a history of hypertension. 7. Opioid therapy is greater than 6 weeks; therefore, [place] [address] PAIN MANAGEMENT CONSULTATION Name: TASNEEM ANGUIANO Room #: REG SETH Coker#: [id number] Admission: 01/23/20 Attend Phys: Virgen Edge Discharge: Date of : 54 Report #: [id number] is on the chart. Risk assessment is low. Functional assessment is 2/70. 8. Recreational drug use, she denies. She is not a smoker and does not drink alcohol. According to the prescription monitoring system, the patient is due to fill her medications today, filling them in a timely fashion. She does see a psychiatrist and have medicines filled from them as well. We will closely monitor dose intake. Her morphine mEq is 60 MME according to their guidelines. PHYSICAL EXAMINATION: GENERAL: This is alert and orientated 69-year-old who appears her stated age, placing her current pain score today at 7/10. She is a good historian. HEENT: Normocephalic, atraumatic. Extraocular eye muscles are intact. Sclerae are nonintrinsic. She is wearing a mask. NECK: Without adenopathy or JVD. MUSCULOSKELETAL: She has tenderness in her left shoulder that is increased with abduction, pain in her lumbosacral region, radiates down her legs bilaterally. Lower extremity strength is judged to be symmetrical at 5/5. She has a slightly antalgic gait. IMPRESSION: 1. Lumbar radicular pain following the L4-L5 dermatomal distribution. 2. Left hip pain, status post left hip replacement. 3. Left shoulder pain. 4. Osteoarthritis and rheumatoid arthritis. 5. Complex medication management utilizing opioid medications. We reviewed the fact that opiate medications are being used to provide analgesia adequate to support activities of daily living, not attempting to achieve a specific pain score on the 0-10 Visual Analog Scale. The current opiate medications are providing sufficient analgesia to allow the patient to participate in activities of daily living. The patient is not exhibiting any aberrant behavior suggestive of drug diversion. The patient is not having any adverse reactions to medications. The patient is not suffering from daytime somnolence or mental acuity changes. The patient is managing opiate-induced constipation with appropriate uoah-jyi-ctontxj agents and dietary considerations. The patient was counseled on concern for caution with operating a motor vehicle while using opiate medications. PLAN: 1. We discussed treatment options with the patient today. The patient finds her medications are beneficial. She states since she has decreased her opioid medications, she has less constipation. We will continue her on her current dose of methadone 10 mg b.i.d., quantity 60 with one additional refill will be sent electronically by Dr. Clem Lucia. Per the patient's report today, she does not need any further medications of meloxicam, gabapentin, diclofenac, [facility] [address] [place] [address] PAIN MANAGEMENT CONSULTATION Name: TASNEEM ANGUIANO Room #: REG CL MJl.#: [id number] Admission: 01/23/20 Attend Phys: Virgen Edge Discharge: Date of : 54 Report #: [id number] baclofen or amitriptyline. If she finds that she needs a prescription before her next appointment, we will send in 1 month. 2. I encouraged the patient to safeguard her medications while she is flying, keeping her with them on the plane, the patient verbalizes understanding. 3. The patient is seen in collaboration with Dr. Clem Lucia. By: [id number] Virgen Edge /nt
[2020-01-23 10:02] VITALS: BP 128/84
--- NOTE | 2020-01-23 10:15 | NUR ---
Pain Clinic Assessment: 1. History of Osteoarthritis: KNEES, HIPS History of Rheumatoid Arthritis: ALL OVER 2. Height: 4 ft. 10 in. 147.3 cm. Weight: 112.0 lb. oz. 50.803 kg. Patient's BMI: 23.4 3. Vital Signs: BP: 128/84 Pulse: 115 Resp: 14 Temp: 02 Sat: 100 ECG Mon: 4. Pain Intensity: 7 5. Fall Risk: Dizziness: N Needs help standing or walking: N Fallen in the last 3 months: N Fall risk comments: FELL USING CRUTCHES/FELL TO THE RIGHT SIDE/USING WALKER 6. Patient on Blood Thinner: None 7. History of Hypertension: N 8. Opioid Therapy greater than 6 weeks: Y Opiate Contract Signed: 12/09/15 9. Risk Assessment Tool Provided: 2 LOW RISK 10. Functional Assessment Tool: /70 11. Recreational Drug Use: Never Drug Type: Tobacco Use: Never Smoker Tobacco Type: Amount or Packs/day: How Many Years: Alcohol Use: No Frequency: Quant:
== END ==
LOC: PAIN 06:53
PROVIDERS: ATTEND Clinical Nurse Specialist Adult Health
DX: M54.5 Low back pain (principal); M25.552 Pain in left hip; M25.512 Pain in left shoulder; M06.9 Rheumatoid arthritis, unspecified; F11.20 Opioid dependence, uncomplicated; Z96.642 Presence of left artificial hip joint; Z88.8 Allergy status to other drugs, medicaments and biological substances; Z79.899 Other long term (current) drug therapy

== ENCOUNTER → 2020-03-19 | Outpatient (CLI) | payer OTHER ==
[~2020-03-19] VITALS: Ht 147.3 cm; Wt 53.2 kg
--- NOTE | ~2020-03-19 | HPC ---
[facility] [address] [address] PAIN MANAGEMENT CONSULTATION Name: TASNEEM ANGUIANO Room #: REG REJIAlvaro Coker#: [id number] Admission: 03/19/20 Attend Phys: Virgen Edge Discharge: Date of : 54 Report #: [id number] THIS REPORT FOR: cc: Adarsh Abdi MD, Charles W. MD Hocker,Virgen VIRAMONTES ~ CC: Vrigen Abdi N Leland Lucia MD DATE OF SERVICE: 03/19/2020 CHIEF COMPLAINT: Low back pain and knee pain. HISTORY OF PRESENT ILLNESS: This is a very pleasant 69-year-old female who returns to the pain clinic today for refill of her medications. Today, she is reporting that overall she feels like she is doing quite well. She has finished her physical therapy on an outpatient basis, but does continue home exercises for her knee. She does complain of some ongoing low back pain that has been chronic in nature. It is worse in her right leg as opposed to the left, rating her pain score 7/10. It is increased when she does walk and is active. The patient does report that she was able to go on a vacation to [facility] and was able to be fairly active throughout that visit, but she is thankful that she had her medication for that. The patient does complain of some constipation issues and would like refills of her Movantik. She feels that is most beneficial in helping her with her opioid-induced constipation. She does continue to drink plenty of liquids and eat plenty of fruits and vegetables. ALLERGIES: POLLEN, IV DYE, SHELLFISH and CORN. CURRENT LIST OF MEDICATIONS: Methadone 10 mg b.i.d., Nasacort, amitriptyline, meloxicam 7.5 mg, Voltaren gel, baclofen p.r.n., Movantik, losartan, progesterone, dextroamphetamine, Synthroid, probiotic, stool softener, Paxil, Wellbutrin, and diazepam. PQRS: 1. She has diffuse osteoarthritis in her hips and knees as well as being treated for rheumatoid arthritis. 2. Height is 4 feet 10 inches, weight is 117, BMI is 24. 3. Vital signs 137/82, pulse is 100, respirations 16, oxygen sat is 100. 4. Pain score 7/10. 5. Denies dizziness, does not need help walking or standing, has not fallen in the last [address] [address] PAIN MANAGEMENT CONSULTATION Name: TASNEEM ANGUIANO Room #: REG CLI Tu#: [id number] Admission: 03/19/20 Attend Phys: Virgen Edge Discharge: Date of : 54 Report #: [id number] 6. The patient is not on any blood thinners or medications for hypertension. Her opioid therapy is greater than 6 weeks; therefore, an opioid signed contract is on the chart. Risk assessment is low. Functional assessment is 57/70. 7. Recreational drug use, she denies. She is not a smoker and does not drink alcohol. According to the prescription monitoring system, she is due to fill her medications in a few days, filling them in a timely fashion. Her morphine milliequivalent is 60 MME. PHYSICAL EXAMINATION: GENERAL: This is alert and orientated 69-year-old female who is a good historian, who is rating her pain score today at 7/10. HEENT: Normocephalic, atraumatic. Extraocular eye muscles are intact. Mucous membranes are moist. She is wearing a mask. MUSCULOSKELETAL: She has pain and tenderness in her lower back that radiates into her knees and her right leg. Her lower extremity strength is symmetrical at 5/5. She has no swelling noted in her knee today. She does have a slightly antalgic gait. IMPRESSION: 1. Lumbar radiculopathy following the L4-L5 dermatomal distribution. 2. Status post left hip replacement. 3. Ongoing left shoulder pain. 4. Osteoarthritis and rheumatoid arthritis. 5. Complex medical management utilizing scheduled opioids. 6. Opioid-induced constipation. We reviewed the fact that opiate medications are being used to provide analgesia adequate to support activities of daily living, not attempting to achieve a specific pain score on the 0-10 Visual Analog Scale. The current opiate medications are providing sufficient analgesia to allow the patient to participate in activities of daily living. The patient is not exhibiting any aberrant behavior suggestive of drug diversion. The patient is not having any adverse reactions to medications. The patient is not suffering from daytime somnolence or mental acuity changes. The patient is managing opiate-induced constipation with appropriate [id number] agents and dietary considerations. The patient was counseled on concern for caution with operating a motor vehicle while using opiate medications. A physical exam was performed and the patient's functional status was evaluated. All patients with back pain were advised against the bed rest greater than 4 days and were advised to return to normal activities. Pain score assessment was noted and the treatment plan was reviewed with the patient. All current medications, both prescribed and OTC were reviewed and reconciled on the electronic medical record. Tobacco screening was accomplished and smoking [address] [address] PAIN MANAGEMENT CONSULTATION Name: TASNEEM ANGUIANO Room #: REG SETH Coker#: [id number] Admission: 03/19/20 Attend Phys: Virgen Edge Discharge: Date of : 54 Report #: [id number] cessation was advised when indicated. BMI was noted and diet/exercise modification was recommended for all patients following outside normal parameters. I reviewed with the patient today their responsibilities to safeguard prescription medications, reviewed their responsibility to utilize medications only as prescribed by the physician. They are to seek and receive pain medications only from 1 physician group ( [facility]). They are to use 1 pharmacy and keep the clinic informed if they change pharmacies. Their responsibilities include making followup visits in a timely fashion and to avoid abrupt discontinuation of medication usage. Their responsibilities further include bringing their medications (bottles from the pharmacy with residual pills) to the visit for possible confirmation of pill counts and the patient understands it is their responsibility to submit to random drug screens to ensure both that the medications prescribed are present, and that no other controlled substances are present. All prescriptions provided today were generated electronically. PLAN: 1. We discussed treatment options with the patient today. The patient finds her medications beneficial and would like to continue her opioid methadone medication. She does not take any breakthrough pain medicines, but does take various adjuvant medications that she finds beneficial. She has recently stopped her gabapentin as she is slowly titrated down, so she is not needing refills of that today. 2. We will have medications sent electronically for methadone 10 mg b.i.d.; meloxicam 7.5 mg, #30 times 5 refills; amitriptyline 10 mg 1-2 at bedtime, #60 with 5 refills; Movantik 25 mg daily with 5 additional refills. The patient is not needing her diclofenac gel today. 3. The patient is given names for Dr. Turpin and Dr. Annia Mims for a Rheumatology physician. She states she would like to find another physician, but I encouraged her to look at her providers on her insurance plan. 4. The patient is seen in collaboration with Dr. Lucia. The patient will return in 2 months. By: [id number] Virgen Edge /marc
[2020-03-19 10:55] VITALS: BP 137/82
--- NOTE | 2020-03-19 11:20 | NUR ---
Pain Clinic Assessment: 1. History of Osteoarthritis: KNEES, HIPS History of Rheumatoid Arthritis: ALL OVER 2. Height: 4 ft. 10 in. 147.3 cm. Weight: 117.2 lb. oz. 53.161 kg. Patient's BMI: 24.5 3. Vital Signs: BP: 137/82 Pulse: 100 Resp: 16 Temp: 02 Sat: 100 ECG Mon: 4. Pain Intensity: 7 5. Fall Risk: Dizziness: N Needs help standing or walking: N Fallen in the last 3 months: N Fall risk comments: FELL USING CRUTCHES/FELL TO THE RIGHT SIDE/USING WALKER 6. Patient on Blood Thinner: None 7. History of Hypertension: N 8. Opioid Therapy greater than 6 weeks: Y Opiate Contract Signed: 12/09/15 9. Risk Assessment Tool Provided: 2 LOW RISK 10. Functional Assessment Tool: 57/ 11. Recreational Drug Use: Never Drug Type: Tobacco Use: Never Smoker Tobacco Type: Amount or Packs/day: How Many Years: Alcohol Use: No Frequency: Quant:
== END ==
LOC: PAIN 06:53
PROVIDERS: ATTEND Clinical Nurse Specialist Adult Health
DX: M54.16 Radiculopathy, lumbar region (principal); M25.512 Pain in left shoulder; M06.9 Rheumatoid arthritis, unspecified; F11.20 Opioid dependence, uncomplicated; K59.03 Drug induced constipation; Z96.642 Presence of left artificial hip joint; Z88.8 Allergy status to other drugs, medicaments and biological substances; Z79.899 Other long term (current) drug therapy

== ENCOUNTER → 2020-05-14 | Outpatient (CLI) | payer OTHER ==
[~2020-05-14] VITALS: Ht 147.3 cm; Wt 53.0 kg
[~2020-05-14] MED LIST changes: +LEVO-T75 MCG PO
[2020-05-14 13:43] VITALS: BP 122/76
--- NOTE | 2020-05-14 13:59 | NUR ---
Pain Clinic Assessment: 1. History of Osteoarthritis: KNEES, HIPS History of Rheumatoid Arthritis: ALL OVER 2. Height: 4 ft. 10 in. 147.3 cm. Weight: 116.8 lb. oz. 52.980 kg. Patient's BMI: 24.4 3. Vital Signs: BP: 122/76 Pulse: 86 Resp: 14 Temp: 02 Sat: 100 ECG Mon: 4. Pain Intensity: 7 5. Fall Risk: Dizziness: N Needs help standing or walking: N Fallen in the last 3 months: N Fall risk comments: FELL USING CRUTCHES/FELL TO THE RIGHT SIDE/USING WALKER 6. Patient on Blood Thinner: None 7. History of Hypertension: N 8. Opioid Therapy greater than 6 weeks: Y Opiate Contract Signed: 12/09/15 9. Risk Assessment Tool Provided: 2 LOW RISK 10. Functional Assessment Tool: 57/ 11. Recreational Drug Use: Never Drug Type: Tobacco Use: Never Smoker Tobacco Type: Amount or Packs/day: How Many Years: Alcohol Use: No Frequency: Quant:
== END ==
LOC: PAIN 06:57
PROVIDERS: ATTEND Anesthesiology Pain Medicine
DX: M54.16 Radiculopathy, lumbar region (principal); M19.90 Unspecified osteoarthritis, unspecified site; M06.9 Rheumatoid arthritis, unspecified; Z79.891 Long term (current) use of opiate analgesic; Z96.612 Presence of left artificial shoulder joint

== ENCOUNTER → 2020-09-10 | Outpatient (CLI) | payer OTHER ==
[~2020-09-10] VITALS: Ht 144.8 cm; Wt 53.1 kg
[~2020-09-10] MED LIST changes: +IMITREX 25 MG T25 M1 PO; +IMITREX 25 MG T25 MG PO
[2020-09-10 14:56] VITALS: BP 137/91
--- NOTE | 2020-09-10 14:56 | NUR ---
Pain Clinic Assessment: 1. History of Osteoarthritis: KNEES, HIPS History of Rheumatoid Arthritis: ALL OVER 2. Height: 4 ft. 9 in. 144.8 cm. Weight: 117.0 lb. oz. 53.071 kg. Patient's BMI: 25.3 3. Vital Signs: BP: 137/91 Pulse: 96 Resp: 16 Temp: 02 Sat: 97 ECG Mon: 4. Pain Intensity: 5 5. Fall Risk: Dizziness: N Needs help standing or walking: N Fallen in the last 3 months: N Fall risk comments: FELL USING CRUTCHES/FELL TO THE RIGHT SIDE/USING WALKER 6. Patient on Blood Thinner: None 7. History of Hypertension: N 8. Opioid Therapy greater than 6 weeks: Y Opiate Contract Signed: 12/09/15 9. Risk Assessment Tool Provided: 2 LOW RISK 10. Functional Assessment Tool: 57/70 11. Recreational Drug Use: Never Drug Type: Tobacco Use: Never Smoker Tobacco Type: Amount or Packs/day: How Many Years: Alcohol Use: No Frequency: Quant:
== END ==
LOC: PAIN 10:47
PROVIDERS: ATTEND Anesthesiology Pain Medicine
DX: K59.03 Drug induced constipation (principal); T40.2X5A Adverse effect of other opioids, initial encounter; K31.9 Disease of stomach and duodenum, unspecified; M54.16 Radiculopathy, lumbar region; M06.80 Other specified rheumatoid arthritis, unspecified site; Z96.642 Presence of left artificial hip joint; Z79.891 Long term (current) use of opiate analgesic; Y92.9 Unspecified place or not applicable; Y92.89 Other specified places as the place of occurrence of the external cause

== ENCOUNTER → 2021-01-21 | Outpatient (CLI) | payer OTHER ==
[~2021-01-21] VITALS: Ht 144.8 cm; Wt 49.5 kg
[~2021-01-21] MED LIST changes: +LINZESS145 MCG PO
[2021-01-21 10:41] VITALS: BP 126/87
--- NOTE | 2021-01-21 10:56 | NUR ---
Pain Clinic Assessment: 1. History of Osteoarthritis: KNEES, HIPS History of Rheumatoid Arthritis: ALL OVER 2. Height: 4 ft. 9 in. 144.8 cm. Weight: 109.2 lb. oz. 49.533 kg. Patient's BMI: 23.6 3. Vital Signs: BP: 126/87 Pulse: 82 Resp: 14 Temp: 02 Sat: 98 ECG Mon: 4. Pain Intensity: 6 W/ACTIVITY 5. Fall Risk: Dizziness: N Needs help standing or walking: N Fallen in the last 3 months: N Fall risk comments: FELL USING CRUTCHES/FELL TO THE RIGHT SIDE/USING WALKER 6. Patient on Blood Thinner: None 7. History of Hypertension: N 8. Opioid Therapy greater than 6 weeks: Y Opiate Contract Signed: 12/09/15 9. Risk Assessment Tool Provided: 2 LOW RISK 10. Functional Assessment Tool: 57/ 11. Recreational Drug Use: Never Drug Type: Tobacco Use: Never Smoker Tobacco Type: Amount or Packs/day: How Many Years: Alcohol Use: No Frequency: Quant:
== END ==
LOC: PAIN 07:08
PROVIDERS: ATTEND Clinical Nurse Specialist Adult Health
DX: M54.16 Radiculopathy, lumbar region (principal); M19.90 Unspecified osteoarthritis, unspecified site; M06.89 Other specified rheumatoid arthritis, multiple sites; K59.00 Constipation, unspecified; Z79.891 Long term (current) use of opiate analgesic; Z79.899 Other long term (current) drug therapy

== ENCOUNTER → 2021-04-06 | Outpatient (CLI) | payer OTHER ==
[~2021-04-06] VITALS: Ht 144.8 cm; Wt 53.7 kg
[2021-04-06 10:13] VITALS: BP 151/96
--- NOTE | 2021-04-06 10:27 | NUR ---
Pain Clinic Assessment: 1. History of Osteoarthritis: KNEES, HIPS History of Rheumatoid Arthritis: ALL OVER 2. Height: 4 ft. 9 in. 144.8 cm. Weight: 118.4 lb. oz. 53.706 kg. Patient's BMI: 25.6 3. Vital Signs: BP: 151/96 Pulse: 91 Resp: 14 Temp: 02 Sat: 97 ECG Mon: 4. Pain Intensity: 6 CONSTANT 5. Fall Risk: Dizziness: N Needs help standing or walking: N Fallen in the last 3 months: N Fall risk comments: FELL USING CRUTCHES/FELL TO THE RIGHT SIDE/USING WALKER 6. Patient on Blood Thinner: None 7. History of Hypertension: N 8. Opioid Therapy greater than 6 weeks: Y Opiate Contract Signed: 12/09/15 9. Risk Assessment Tool Provided: 2 LOW RISK 10. Functional Assessment Tool: / 11. Recreational Drug Use: Never Drug Type: Tobacco Use: Never Smoker Tobacco Type: Amount or Packs/day: How Many Years: Alcohol Use: No Frequency: Quant:
== END ==
LOC: PAIN 07:12
PROVIDERS: ATTEND Clinical Nurse Specialist Adult Health
DX: M54.16 Radiculopathy, lumbar region (principal); M96.1 Postlaminectomy syndrome, not elsewhere classified; M06.8A Other specified rheumatoid arthritis, other specified site; R51.9 Headache, unspecified; Z96.642 Presence of left artificial hip joint; Z88.8 Allergy status to other drugs, medicaments and biological substances; Z79.899 Other long term (current) drug therapy